=== PATIENT | male | born 1970 | race Caucasian/White ===

== ENCOUNTER 2024-12-23 16:54 | Emergency (ER) | payer OTHER, SELFPAY ==
--- OUTSIDE RECORDS SUMMARY | 2010-05-08 20:00 | XMS_ITS | Continuity of Care Document ---
Author Organization [facility] Address [address] [place] [address] Phone Care Team Providers Care Electrolog Operator Name Role Phone Unavailable Unavailable Unavailable Allergies, Adverse Reactions, Alerts Substance Reaction Status Criticality No Known Drug Allergies Active No I nformation Advance Directives Directive Yes / No Effective Date File Name No Information Encounters Encounter Description Practice Location Reason(s) For Visit Diagnoses Date Provider Providers Copied on Encounter [facility], [address] [place] [address], [address], tel:[phone] [facility] No Information 0 No Information [facility], [address] [place] [address], [address], [place] tel:[phone] [facility] Generalized seizuresHyperten natalya, Benign EssentialEsophag eal Reflux 0 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 . Family History Family Member Type Diagnosis Age At Onset NULL Problem (finding) Hypertension Payers Payer name Insurance type Covered alliance party ID Authoriza tion(s) No Information Social History Type Description Quantity Date Captured Comments Sex Male Smoking Status No Information Chief Complaint And Reason For Visit No Information Reason For Referral Reason For Referral No Information History Of Present Illness Encounter Date Complaint History Of Prese nt Illness No Information Functional Status Date Functional Assessmen t No Information Instructions Date Instruction Additional Infor mation No Information Assessments Type Assessment Date No Information Patient Care Teams Name Effective Dates (start - stop) Status Members No Information
--- OUTSIDE RECORDS SUMMARY | 2024-10-31 10:00 | XMS_ITS ---
Author Organization [facility] Address [address] [place] [address] Care Team Providers Care Gang Drill Press Operator Name Role Phone Angel Carrasquillo Primary Care Provider [phone] REASON FOR VISIT 1month f/u DM/A1C Social History Sex Assigned At : Social History Observation Description Sex Assigned At Male Encounters Encounter Location Date Provider Diagnosis [facility] [address] [place] [address] 10/31/2024 Angel Carrasquillo Plan Of Treatment Next Appt Details Provider Name:Angel Redd , 02/04/2025 10:00:00 AM, [address] [place], [address], Progress Notes * TEA KEN LDOB:1970 (54 yo M)Acc No.[id number]:10/31/2024 Progress Notes Patient: Perla TEA HUFFMAN Provider: Shital Carrasquillo :1970 A ge:53 Y S ex:Male Date:10/31/2024 Address:[address] [place], [place] [id number] Subjective: * Chief Complaints: * 1 . 1month f/u DM/A1C. * Medical History: Objective: * Vitals: Assessment: Plan: * Treatment: * Images: * Electronic signature of Danae Carrasquillo DO on 12/23/2024 at 06:06 PM EDT Sign off status: Pending * Provider: Shital Carrasquillo Date: 0 10/31/2024 Generated for Printi ng/Faxing/eTransmitting on: 0 12/23/2024 06:06 PM EDT
--- OUTSIDE RECORDS SUMMARY | 2024-11-06 04:45 | XMS_ITS ---
Author Organization [facility] Address [address] [place] [address] Care Team Providers Care Account Receivable Clerk Name Role Phone Angel Carrasquillo Primary Care Provider REASON FOR VISIT 1month f/u DM/A1C Social History Sex Assigned At : Social History Observation Description Sex Assigned At Male Encounters Encounter Location Date Provider Diagnosis [facility] [address] [place] [address] 11/06/2024 Angel Carrasquillo Plan Of Treatment Next Appt Details Provider Name:Angel Redd , 02/04/2025 10:00:00 AM, [address] [place], [address], Progress Notes * TEA KEN LDOB:1970 (54 yo M)Acc No.[id number]:11/06/2024 Progress Notes Patient: Perla TEA HUFFMAN Provider: Shital Carrasquillo :1970 A ge:53 Y S ex:Male Date:11/06/2024 Address:[address] [place], [place] [id number] Subjective: * Chief Complaints: * 1 . 1month f/u DM/A1C. * Medical History: Objective: * Vitals: Assessment: Plan: * Treatment: * Images: * Electronic signature of Danae Carrasquillo DO on 12/23/2024 at 06:05 PM EDT Sign off status: Pending * Provider: Shital Carrasquillo Date: 0 11/06/2024 Generated for Printi ng/Faxing/eTransmitting on: 0 12/23/2024 06:05 PM EDT
--- OUTSIDE RECORDS SUMMARY | 2024-12-01 13:45 | XMS_ITS | Encounter Summary ---
Author Organization [facility] Address [address] [place], [place] [id number] Care Team Providers Care Hotshot Superintendent Name Role Phone SherieparishCarmenTrinidad Fidel ASSISTANT MANAGER AIRSIDE OPERATIONS Unavailable [phone] Source Comments In the event this information is protected by the Federal Confidentiality of Alcohol and Drug AbusePatient Records regulations: The Federal rules restrict any use of the information to criminally investigate or prosecute any alcohol or drug abuse patient.[facility] Reason for Visit * Reason Comments PT Eval * Physical Therapy (Routine) - Authorized Specialty Diagnoses / Procedures Referred By Contac t Referred To Contact [facility] Diagnoses Lumbar radiculitis Procedures CONSULT TO PHYSICAL THERAPY PHYSICAL THERAPY EVALUATION HIGH COMPLEX 45 MINS THERAPEUTIC EXERCISES RE, EA 15 MIN. Florence Rivers, BARBARA.ASSISTANT MANAGER AIRSIDE OPERATIONS [address] [place] [address] Phone: tel: fax: [facility] [address] [place] [address] Referral ID Status Reason Start Date Expiration Date Visits Requested Visits Authorized [id number] Authorized Auto-Generat ed Referral 05/28/2024 05/27/2025 99 99 Encounter Details Date Type Department Care Team (Late st Contact Info) Description 12/01/2024 1:45 PM EDT OT/PT/Speech Visit [facility] [address] [id number] Ray Contreras, PT Lumbar radiculitis Social History Tobacco Use Types Packs/Day Years Used Date Smoking Tobacco: Never Smokeless Tobacco: Current Chew Alcohol Use Standard Drinks/Week Comments Not Currently 0 (1 standard drink = 0.6 oz pur e alcohol) occasional alcohol Area Deprivation Index Answer Date Derek rded National Score (1-100), lower number is lower ri sk 68 05/13/2024 State Score (1-10), lower number is lower risk 5 05/13/2024 Data from: https://www.neighborhoodatlas.medicine.[facility].edu/. Last address used for calculation [address] 05/13/2024 Sex and Gender Information Value Date Recorded Sex Assigned at Not on file Legal Sex Male 9:03 AM EST Gender Identity Not on file Sexual Orientation Not on file documented as of this encounter Progress Notes * Ray Contreras, PT - 12/01/2024 1:40 PM EDT Images from the original note were not included. Episode Visit Count: 1 Therapist That Will Accept/Oversee The Plan Of Care: Ortega Contreras Start of Care Date: 12/01/24 Onset Date: 09/01/24 Plan of Care Certification Date: 12/01/24 Next Certification Due Date: 01/30/25 Patient Identified by Name and Date of : Yes [facility] PHYSICAL THERAPY EVALUATION PLAN OF CARE: Assessment: Delta Weems presents with chief complaint of chronic low back pain that interferes with rising from a chair, standing, walking, walking in the community, stair negotiation, bending, lifting, physical activities . Pt with significant PMHx of low back pain and dysfunction. Pt presents with shuffled, antalgic gait pattern and forward-flexed posture. Difficulty with mobility. Unable to assess ROM or strength accurately. Discussed possible treatment options. Will progress as tolerated.Visit heavy on education/discussion on treatment approaches/options. Will progress as tolerated. Ptto f/u 1x/week moving forward. The patient presents with impairments in ADL's, flexibility, gait, independence in exercise, overall function, patient reported outcome measures, posture, range of motion, strength, stress management, symptom management, and tissue tenderness. PROMIS?? (Patient-Reported Outcomes Measurement Information System) scores were reviewed and identified as a rehabilitation concern. Prognosis for therapy is Fair due to: clinical presentation, multiple co- morbidities, chronic nature of impairments, limited tolerance to activity . The patient will benefit from skilled therapy services to meet the goals established for this plan of care as noted below. Classification Pain Mechanism Classification: Neuropathic Low Back Pain Classification: Symptom Modulation Goals for Episode of Care: established 12/01/24 Patient will decrease pain to <2/10 with functional activities to allow patient to improve standing tolerance for ADLs. Pt will restore pain-free lumbar ROM to WFL for mu-ism of prior level of function. Pt will stand / walk for 10 minutes without pain/symptoms to improve functional mobility for ADLs. Pt will improve gait mechanics and standing posture to be able to stand erect (without forward flexion of the trunk) in order to decrease stiffness/pain/dysfunction. Patient Goals: Be able to walk Time Frame for Goals and Treatment : 01/31/25 Planned Interventions, Frequency, and Duration: Current Frequency: 1x/week Duration: 8 weeks Total Number of Visits Planned: 8 Planned Treatment Interventions: Therapeutic exercise (80084), Neuromuscular re- education (94758), Manual therapy (37347), Self-halfway management (87408), Therapeutic activities (89333), Gait Training (65726), Aquatic PT (87431), Patient/Family/Caregiver Education, Body Mechanics Training, Functional training, General Conditioning PLAN FOR NEXT VISIT: light, slow movements, positioning; attempt repeated movements? anything tolerable; discuss possible aquatics trial? Patient demonstrates good understanding of plan of care and treatment. The above goals and plan of care were discussed and agreed upon by patient/family. SUBJECTIVE: Significant low back injury ~2-3 years ago. Back blew out . Has had pretty serious back pain ever since. 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 Doesn't move around a whole lot. Pain is mostly localized to the low back, but legs will spasm every now and then. Does get N&T in the R leg. Had MRI when original injury occurred. Revealed an annular tear and several significant disc bulges. Was given epidural injection recently. Only got 2-3 days of relief. Doctor was not happy. Was told he would have to undergo PT before he got any further imaging Patient Goals: Be able to walk Functional Limitations: rising from a chair, standing, walking, walking in the community, stair negotiation, bending, lifting, physical activities Prior Level of Function: Independent without limitations Relevant History Past Relevant Medical Conditions: Hypertension, Diabetes Employment: Medically Disabled Recreation / Current Exercise: none currently Intake Information: Prescription present Previous Treatment: Pain meds , Pain Management , Muscle relaxer , Injections , Heat Falls Interview: No positive findings with falls interview Spine History Symptoms Location at Onset: Back Symptoms Since Onset: Worsening Pain is Worse Always: Bending, Prolonged positions, Turning, Walking, Standing Pain is Better Always: No position Sleep Affected by Pain: Pain keeps from falling asleep, Pain awakens Pain: Pain Pain Level: 10 Pain Location: Low Back/Lumbar Spine - Right, Low Back/Lumbar Spine- Midline, Low Back/Lumbar Spine- Left Description: Sharp, Shooting, Spasm Frequency: Continuous Post Treatment Pain Post Treatment Pain Level: Worse Post Treatment Pain Location: Low Back/Lumbar Spine - Right, Low Back/Lumbar Spine- Midline, Low Back/Lumbar Spine - Left PROMIS Scales 08/22/2023 Higher is Better Phys Func - T Score 39 (moderate dysfunction) Phys Func - Percentile 14 08/22/2023 Lower is Better Pain Interference - T Score 63 (moderate) Pain Interference - Percentile 10 T-scores: mean of general population = 50. 5 points is clinically meaningfully difference Percentiles provide an indication of how the patient's score ranks in relation to the general population. Higher percentile rankings indicate better function/quality of life. 50th percentile is the average of the general population and indicates half of respondents had a worse score. OBJECTIVE MEASURES WITH LEVEL OF FUNCTION: Spine Observations R Lumbar Spine Palpation Tenderness: Paraspinals, Spinous process L Lumbar Spine Palpation Tenderness: Paraspinals, Spinous process Lumbar Spine AROM Lumbar Flexion: Moderate limitation, Increased pain Lumbar Extension: Major limitation, Increased pain Lumbar R Side-Bend: Moderate limitation Lumbar L Side-Bend: Moderate limitation Lumbar Spine AROM Comments: significant forward flexed posture; unable to move outside of this posture without significant pain LE AROM Tested?: No (unable 2/2 pain) LE PROM Tested?: No (unable 2/2 pain) LE Strength R LE Strength: unable to accurately assess 2/2 pain L LE Strength: unable to accurately assess 2/2 pain Functional Strength Functional Strength: Sit<>stand Sit/Stand: excess time required to perform; slow-moving 2/2 pain Special Tests - Hip and Spine Hip and Spine Special Tests: Slump Test Slump Test: Right Positive, Left Positive Gait Gait: Modified Independent Gait Distance (feet): 250 Gait Device: None Gait Observation: significant flexed-forward posture; unable to stand erect; slow moving, shuffled pattern w/inconsistent step length and betsy Education: Education Learning Preferences: Demonstration, Explanation, Performance, Printed Materials Barriers: None Learning/educational needs: Lifestyle changes, Health promotion, Safety, Home exercise program, Plan of Care, Changes in Plan of Care, Posture, Gait Training Education Provided: Yes, see treatment interventions for education provided Education Provided To: Patient, Caregiver Education Mode/Type: Demonstration, Explanation/Discussion, Literature/Printed Materials, Performance Response to Education/Teach Back: States/Identifies, Return Demonstration TREATMENT: PT Treatment Interventions: Self-Senior Living Management Evaluation Evaluation Self-Senior Living Management: 1: education - relevant anatomy; reviewed imaging; disc anatomy/dysfunction; purposes of; pathologyof 2: education - heavy/extensive discussion on activity modification (i.e. avoiding sedentary lifestyle); prognogis/treatment approach 3: discussion on POC, HEP, modalities at home to assist in pain alleviation 4: education - treatment options beyond what has been attempted; plans for therapy and beyond; discussed further medical intervention, etc Skilled Intervention: Skilled judgment in the selection of proper modification for activity of daily living/home management based on clinical presentation, deficits, and needs. Reviewed patient specific diagnosis in relation to activities of daily living/home management. Billing * Evaluation Moderate Complexity: 1 Unit Self-Care/Home Management Treatment Minutes: 38 Skilled Treatment Time Minutes (timed and untimed codes): 62 Total Session Time (minutes): 62 Session Start Time : 1340 Session Stop Time : 1442 Ray Contreras PT documented in this encounter Miscellaneous Notes * Addendum Note - Ray Contreras PT - 12/11/2024 4:02 PM EDTAddended by: RAY CONTRERAS on: 12/11/2024 04:02 PM Modules accepted: Orders documented in this encounter Plan of Treatment Upcoming Encounters Date Type Department Care Team (Late st Contact Info) Description 12/25/2024 1:45 PM EDT OT/PT/Speech Visit [facility] [id number] [place] [address] Ray Contreras PT Low Back Pain 01/01/2025 1:45 PM EDT OT/PT/Speech Visit [facility] [address] [place] [address] Ray Contreras PT Low Back Pain documented as of this encounter Visit Diagnoses Diagnosis Lumbar radiculitis Thoracic or lumbosacral neuritis or radiculitis, unspecified documented in this encounter Care Teams Hotshot Superintendent Relationship Specialty Start Date End Date Trinidad Gomes, ASSISTANT MANAGER AIRSIDE OPERATIONS [address] [place] [address] Referring Family Medicine 09/17/23 documented as of this encounter
--- OUTSIDE RECORDS SUMMARY | 2024-12-11 15:15 | XMS_ITS | Encounter Summary ---
Author Organization [facility] Address [address] [place], [place] [id number] Care Team Providers Care Toe Stripper Name Role Phone SherieparishCarmenTrinidad Fidel CORPORATE WEBMASTER Unavailable [phone] Source Comments In the event this information is protected by the Federal Confidentiality of Alcohol and Drug AbusePatient Records regulations: The Federal rules restrict any use of the information to criminally investigate or prosecute any alcohol or drug abuse patient.[facility] Reason for Visit * Reason Comments Physical Therapy * Physical Therapy (Routine) - Authorized Specialty Diagnoses / Procedures Referred By Contac t Referred To Contact [facility] Diagnoses Lumbar radiculitis Procedures CONSULT TO PHYSICAL THERAPY PHYSICAL THERAPY EVALUATION HIGH COMPLEX 45 MINS THERAPEUTIC EXERCISES RE, EA 15 MIN. Florence Rivers, BARBARA.CORPORATE WEBMASTER [address] [place] [address] Phone: tel: fax: [facility] [address] [place] [address] Referral ID Status Reason Start Date Expiration Date Visits Requested Visits Authorized [id number] Authorized Auto-Generat ed Referral 05/28/2024 05/27/2025 99 99 Encounter Details Date Type Department Care Team (Latest Contact Info) Description 12/11/2024 3:15 PM EDT OT/PT/Speech Visit [facility] [address] [phone] Ray Randolph, PT Lumbar radiculitis (Primary Dx) Social History Tobacco Use Types Packs/Day Years [...] is lower risk 5 05/13/2024 Data from: https://www.neighborhoodatlas.medicine.[facility].edu/. Last address used for calculation [address] 05/13/2024 Sex and Gender Information Value Date Recorded Sex Assigned at Not on file Legal Sex Male 9:03 AM EST Gender Identity Not on file Sexual Orientation Not on file documented as of this encounter Progress Notes * Ray Randolph, PT - 12/11/2024 4:25 PM EDT Episode Visit Count: 2 Therapist That Will Accept/Oversee The Plan Of Care: Ortega Randolph Start of Care Date: 12/01/24 Onset Date: 09/01/24 Plan of Care Certification Date: 12/01/24 Next Certification Due Date: 01/30/25 Patient Identified by Name and Date of : Yes [facility] PHYSICAL THERAPY TREATMENT NOTE ASSESSMENT: Delta Weems tolerated the session with increased symptoms. He demonstrated difficultywith most mobility activities. Tolerance was very low in terms of activities. Performed graded activities this date, starting at some light aerobic activity and light stretching to determine baseline. The patient will continue to benefit from ongoing skilled physical therapy in order to improve functional mobility for ADLs (I.e. walking, stairs, etc). PLAN FOR NEXT VISIT: light, slow movements, positioning; attempt repeated movements? anything tolerable; discuss possible aquatics trial? SUBJECTIVE: no changes in symptoms from last visit. Has good days and bad days. lost job but is looking for one a little closer to home. No longer living in a truck. Pain: Pain Pain Level: 10 Pain Location: Low Back/Lumbar Spine - Right, Low Back/Lumbar Spine- Midline, Low Back/Lumbar Spine- Left Description: Sharp, Shooting, Spasm Frequency: Continuous Post Treatment Pain Post Treatment Pain Level: Worse OBJECTIVE MEASURES WITH LEVEL OF FUNCTION: Lumbar Spine AROM Lumbar Flexion: Moderate limitation, Increased pain Functional Strength Functional Strength: Supine<>sit Supine<>sit: significant difficulty; slow-moving Gait Gait Observation: significant flexed-forward posture; unable to stand erect; slow moving, shuffled pattern w/inconsistent step length and betsy; intermittent spasms causes weakness/instability inlegs TREATMENT: Therapeutic Exercise: 1: NuStep; light aerobic warm up; intermittent resting; x15 min lvl 1.0 for graded exercise 2: tajik ball roll out; 1/2 ROM; x15 - very slow-moving; very difficult to tolerate 3: clinic ambulation w/CGA/guarding for monitoring of unstable BLE Skilled Intervention: Reviewed and educated patient on additions/changes for home exercise program as above (*). Skilled judgment was used in selection of appropriate interventions. Correct performance of therapeutic exercises was facilitated with verbal and visual cuing. Billing Therapeutic Exercise Treatment Minutes: 45 Skilled Treatment Time Minutes (timed and untimed codes): 45 Total Session Time (minutes): 45 Session Start Time : 1515 Session Stop Time : 1600 Ray Randolph PT documented in this encounter Plan of Treatment Upcoming Encounters Date Type Department Care Team (Late st Contact Info) Description 12/25/2024 1:45 PM EDT OT/PT/Speech Visit [facility] [address] [place] [address] Ray Randolph PT Low Back Pain 01/01/2025 1:45 PM EDT OT/PT/Speech Visit [facility] [address] [place] [address] Ray Randolph PT Low Back Pain documented as of this encounter Visit Diagnoses Diagnosis Lumbar radiculitis- Primary Thoracic or lumbosacral neuritis or radiculitis, unspecified documented in this encounter Care Teams Toe Stripper Relationship Specialty Start Date End Date Trinidad Gomes, CORPORATE WEBMASTER [address] [facility] [address] [place] [address] Referring Family Medicine 09/17/23 documented as of this encounter
[2024-12-23] VITALS (25 sets, daily range): BP systolic 123–154; BP diastolic 84–104; PULSE 53–89; TEMP 36.7; O2SAT 76–100; BMI 31.2
--- OUTSIDE RECORDS SUMMARY | 2024-12-23 14:30 | XMS_ITS | Encounter Summary ---
Author Organization [facility] Address [address] [place], [place] [id number] Care Team Providers Care Belt And Link Assembly Supervisor Name Role Phone SherieparishCarmenTrinidad Fidel [employer] Unavailable [phone] Source Comments In the event this information is protected by the Federal Confidentiality of Alcohol and Drug AbusePatient Records regulations: The Federal rules restrict any use of the information to criminally investigate or prosecute any alcohol or drug abuse patient.[facility] Reason for Visit * Reason Comments Physical Therapy * Physical Therapy (Routine) - Authorized Specialty Diagnoses / Procedures Referred By Contac t Referred To Contact [facility] Diagnoses Lumbar radiculitis Procedures CONSULT TO PHYSICAL THERAPY PHYSICAL THERAPY EVALUATION HIGH COMPLEX 45 MINS THERAPEUTIC EXERCISES RE, EA 15 MIN. Florence Rivers, BARBARA.[employer] [address] [place] [address] Phone: tel: fax: [facility] [address] [place] [phone] Referral ID Status Reason Start Date Expiration Date Visits Requested Visits Authorized [id number] Authorized Auto-Generat ed Referral 05/28/2024 05/27/2025 99 99 Encounter Details Date Type Department Care Team (Latest Contact Info) Description 12/23/2024 2:30 PM EDT OT/PT/Speech Visit [facility] [address] [place] [phone] Zay Carlson, PT, DPT Lumbar radiculitis (Primary Dx) Social History Tobacco [...] is lower risk 5 05/13/2024 Data from: https://www.neighborhoodatlas.medicine.[facility].edu/. Last address used for calculation [address] 05/13/2024 Sex and Gender Information Value Date Recorded Sex Assigned at Not on file Legal Sex Male 9:03 AM EST Gender Identity Not on file Sexual Orientation Not on file documented as of this encounter Last Filed Vital Signs Vital Sign Reading Time Taken Comments Blood Pressure 161/106 12/23/2024 2:00 PM EDT ini tially 183/120, lowered with rest and deep breathing Pulse 64 12/23/2024 2:00 PM EDT Temperature - - Respiratory Rate - - Oxygen Saturation - - Inhaled Oxygen Concentration - - Weight - - Height - - Body Mass Index - - documented in this encounter Progress Notes * Zay Carlson, PT, DPT - 12/23/2024 2:39 PM EDT Episode Visit Count: 3 Therapist That Will Accept/Oversee The Plan Of Care: Ortega Randolph Start of Care Date: 12/01/24 Onset Date: 09/01/24 Plan of Care Certification Date: 12/01/24 Next Certification Due Date: 01/30/25 Patient Identified by Name and Date of : Yes [facility] PHYSICAL THERAPY TREATMENT NOTE ASSESSMENT: Delta Weems presented with reports of newer onset chest pain, occasional bouts of numbness throughout his body, and demonstrated significant hypertension upon measuring blood pressure. Patient denied any dizziness, nausea, shortness of breath, or headaches and appeared alert and oriented to person, place, and time. Upon resting for a few minutes, patient's blood pressure stabilized at 160/100. Due to new onset symptoms and hypertension, patient was encouraged to be seen in the emergency department to rule out any sinister causes, patient in agreement and left session with julio co have his partner take him to the ED. PLAN FOR NEXT VISIT: light, slow movements, positioning; attempt repeated movements? anything tolerable; discuss possible aquatics trial? SUBJECTIVE: No improvement in symptoms since last visit. Reports recent onset of occasional chest pains that feel like I got hit in the chest with a baseball bat . Also reports over the last couple weeks he has started noticing onset of full body numbness from his chest down that causes loss of balance and stability while walking. Denies any falls but reports he has had to catch myself . States he was considering going to the ER because his chest pain has not improved over the last week. Pain: Pain Pain Level: 10 Pain Location: Low Back/Lumbar Spine - Right, Low Back/Lumbar Spine- Midline, Low Back/Lumbar Spine- Left OBJECTIVE MEASURES WITH LEVEL OF FUNCTION: Vitals BP: 161/106 (initially 183/120, lowered with rest and deep breathing) Pulse: 64 TREATMENT: Self-Fdc Management: 1: medical management: assessed vitals and patient status, discussed inability to exercise due to blood pressure, need for further testing to rule out sinister causes due to presentation Skilled Intervention: Monitored vitals and discussed findings, importance of going to the emergencydepartment to further assess new symptoms and ensure no sinister causes. Billing Self-Care/Home Management Treatment Minutes: 20 Skilled Treatment Time Minutes (timed and untimed codes): 20 Total Session Time (minutes): 30 Session Start Time : 1440 Session Stop Time : 1510 Zay Carlson PT, DPT documented in this encounter Plan of Treatment Upcoming Encounters Date Type Department Care Team (Late st Contact Info) Description 12/25/2024 1:45 PM EDT OT/PT/Speech Visit [facility] [address] [place] [id number] Ray Randolph PT Low Back Pain 01/01/2025 1:45 PM EDT OT/PT/Speech Visit [facility] [address] [place], [place] [phone] Ray Randolph, PT Low Back Pain documented as of this encounter Visit Diagnoses Diagnosis Lumbar radiculitis- Primary Thoracic or lumbosacral neuritis or radiculitis, unspecified documented in this encounter Care Teams Belt And Link Assembly Supervisor Relationship Specialty Start Date End Date Trinidad Gomes CNP [address] [facility] [address] [place] [address] Referring Family Medicine 09/17/23 documented as of this encounter
--- NOTE | 2024-12-23 17:22 | ECG_ITS ---
[facility] Test Date: 2024-12-23 Pat Name: TEA KEN Department: Room: - Gender: Male Family Day Care Provider: : 1970 Requested By: 0923 Order Number: [id number] Reading MD: DAVON MATTHEWS M.D. Measurements Intervals [place] Rate: 61 P: 46 PA: 234 QRS: 32 QRSD: 96 T: 28 QT: 428 QTc: 430 Interpretive Statements 1100 Sinus rhythm 2231 First degree AV block 9150 abnormal ECG No previous ECG available for comparison Electronically Signed On 12-23-2024 20:49:37 EDT by DAVON MATTHEWS M.D.
--- NOTE | 2024-12-23 17:22 | XR_ITS ---
The [address] [address] Patient Name: TEA KEN MRN: [id number] date: 1970 Sex: M Assigned Patient Location: ER Current Patient Location: ER Accession/Order Number: [id number] Exam Date: 12/23/2024 17:58 Report Date: 12/23/2024 17:58 At the request of: NAHEED WILLIS Procedure: XR chest 2V PA AND LATERAL CHEST: CLINICAL HISTORY: chest pain COMPARISON: None FINDINGS: Unremarkable cardiomediastinal. Lungs clear. Incidental right lung base calcified granuloma. Azygos fissure. No effusion or pneumothorax. XR/XR chest 2V IMPRESSION: NO ACUTE CARDIOPULMONARY ABNORMALITY. Impression dictated by: Evans Santos M.D. 12/23/2024 5:58 PM Dictation Location: [place] [address] Electronically authenticated by: [id number] Y Date: 12/23/2024 17:58
--- NOTE | 2024-12-23 17:22 | ED.GENADUL1 ---
HPI HPI - General Adult General Chief complaint: Chest Pain Stated complaint: CHEST PAINS Time Seen by Provider: 12/23/24 17:18 Source: patient Mode of arrival: walk-in Limitations: no limitations History of Present Illness HPI narrative: 54-year-old male presents here with a chief complaint of chest pain. Patient states he had pain for the past 2 weeks. Patient does have a history of pulmonary embolisms and takes Lovenox subcu daily. Patient states she has had a history of pulmonary embolism for several years. He is not diaphoretic or having any pain that radiates anywhere. He states he was at his physical therapy appointment today in [place] and they would not finish physical therapy for him and advised him to go to the [facility] ER. Patient drove back to our facility here in [place] for his chest pain workup. Upon arrival he did not appear diaphoretic or short of breath. He denies any history of shortness of breath. He states he has pain to palpation of his chest. He states that his cartilage in his sternum had torn the previously. Patient states after asking that it was costochondritis. Patient does have some pain to palpation of the chest wall today. I have low suspicion of any acute AZ at this time he is very comfortable answering questions. He is not hypoxic diaphoretic or tachycardic. Related Data Home Medications ?Medication ?Instructions ?Recorded ?Confirmed empagliflozin 10 mg tablet 10 mg PO DAILY 12/23/24 12/23/24 (Jardiance) enoxaparin 80 mg/0.8 mL 80 mg subcut DAILY 12/23/24 12/23/24 subcutaneous syringe (Lovenox) insulin glargine 100 unit/mL (3 50 unit subcut QPM 12/23/24 12/23/24 mL) subcutaneous pen (Lantus Solostar U-100 Insulin) valsartan 320 1 tab PO DAILY 12/23/24 12/23/24 mg-hydrochlorothiazide 25 mg tablet (Diovan HCT) Previous Rx's ?Medication ?Instructions ?Recorded potassium chloride 20 mEq oral 20 meq PO DAILY 5 days #5 ea 12/23/24 packet Allergies Allergy/AdvReac Type Severity Reaction Status Date / Time No Known Drug Allergies Allergy Verified 12/23/24 17:04 Opioid HPI Opioid Management Most Recent Opioid Data: Last Pain Scale 6 Today, 19:25 Review of Systems ROS Status of ROS 10 or more systems reviewed and unremarkable except as noted in history and below PFSH PFSH Social History Little interest or pleasure in doing things: not at all Feeling down, depressed, or hopeless: not at all Exam Narrative Exam Narrative: All Systems are negative except as noted/marked.All systems reviewed and otherwise negative Nurses note and vital signs reviewed and patient is not hypoxic. General: The patient appears well and in no apparent distress. Patient is resting comfortably on cart. Skin: Warm, dry, no pallor noted. There is no rash noted. Head: Normocephalic, atraumatic Eye: Normal conjunctiva, no drainage, EOMI. PERRL Ears, Nose, Mouth, and Throat: oral mucosa is moist. Nares patent. Mouth without vesicles. Ear canals patent. Tm's without Erythema Cardiovascular: Regular Rate and Rhythm chest wall: pain to palpation Respiratory: Patient is in no distress, no accessory muscle use, lungs are clear to auscultation, no wheezing, rales or rhonchi Back: non-tender, no CVA tenderness bilaterally to percussion. GI: Normal bowel sounds, no tenderness to palpation, no masses appreciated. No rebound, guarding, or rigidity noted. Musculoskeletal: The patient has no evidence of calf tenderness, no pitting edema, symmetrical pulses noted bilaterally Neurological: A&O x4, normal speech Psychiatric: Cooperative Constitutional Vital Signs, click to edit/add: Last Vital Signs Temp 98.1 F 12/23/24 17:04 Pulse 59 L 12/23/24 18:30 Resp 16 12/23/24 18:30 BP 130/84 12/23/24 18:30 Pulse Ox 98 12/23/24 18:30 O2 Del Method Room Air 12/23/24 17:04 Course Vital Signs Vital signs: Vital Signs Blood Pressure 152/103 H 12/23/24 17:00 Temperature 98.1 F 12/23/24 17:04 Pulse Rate 59 L 12/23/24 18:30 Respiratory Rate 16 12/23/24 18:30 Blood Pressure 130/84 12/23/24 18:30 Pulse Oximetry 98 12/23/24 18:30 Oxygen Delivery Method Room Air 12/23/24 17:04 Medical Decision Making [facility] Narrative Medical decision making narrative: 54-year-old male presents here with a chief complaint of chest pain. Patient states he had pain for the past 2 weeks. Patient does have a history of pulmonary embolisms and takes Lovenox subcu daily. Patient states she has had a history of pulmonary embolism for several years. He is not diaphoretic or having any pain that radiates anywhere. He states he was at his physical therapy appointment today in [place] and they would not finish physical therapy for him and advised him to go to the [facility] ER. Patient drove back to our facility here in [place] for his chest pain workup. Upon arrival he did not appear diaphoretic or short of breath. He denies any history of shortness of breath. He states he has pain to palpation of his chest. He states that his cartilage in his sternum had torn the previously. Patient states after asking that it was costochondritis. Patient does have some pain to palpation of the chest wall today. I have low suspicion of any acute AZ at this time he is very comfortable answering questions. He is not hypoxic diaphoretic or tachycardic. Patient presented here to the emergency room chief complaint of chest pain. Patient's pain is reproducible with palpation of the chest wall. Believe his pain is more due to costochondritis. He did have a complete cardiac workup including 2 troponins which were normal. Patient had a low sodium was medicated here with some IV fluids. He was also given a dose of 40 mill equivalents of potassium for his low potassium of 3.2. CTA of the chest was performed as patient does have a history of pulmonary embolism. 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 Patient's workup is completely normal here today. Patient was medicated here with morphine. He did also have received nitro which did not help alleviate any of his symptoms or pain. Patient encouraged to follow-up with his primary care physician I believe pain today is due to chest wall pain, patient be discharged home with exacerbation or chronic pulmonary embolism, chest wall pain and hypokalemia. Patient verbalized understanding agrees with plan of care at discharge. Differential Diagnosis Differential Diagnosis: chest pain, exacerbation of pe, mi, costochondritis Medical Records Medical records reviewed: Yes I reviewed the patient's medical records Lab Data Lab results reviewed: Yes I reviewed the patient's lab results Labs: Lab Results 07/29/25 07/29/25 07/29/25 Range/Units 17:15 17:37 19:07 WBC 9.5 (4.0-11.0) 10^3/uL RBC 5.75 (4.70-6.10) 10^6/uL Hgb 12.7 L (14.0-18.0) g/dL Hct 39.8 L (42.0-54.0) % MCV 69.2 L (80.0-94.0) fL MCH 22.1 L (25.9-34.0) pg MCHC 31.9 (29.9-35.2) g/dL RDW 18.2 H (11.0-15.0) % Plt Count 353 (150-450) 10^3/uL MPV 9.2 L (9.5-13.5) fL Neut % (Auto) 64.7 (43.0-75.0) % Lymph % (Auto) 21.0 (20.5-60.0) % [place] % (Auto) 6.6 (1.7-12.0) % Eos % (Auto) 6.6 (0.9-7.0) % Baso % (Auto) 0.7 (0.2-2.0) % Neut # (Auto) 6.1 (1.4-6.5) 10^3/uL Lymph # (Auto) 2.0 (1.2-3.8) 10^3/uL [place] # (Auto) 0.6 (0.3-0.8) 10^3/uL Eos # (Auto) 0.6 (0.0-0.7) 10^3/uL Baso # (Auto) 0.1 (0.0-0.1) 10^3/uL Abs Immat Gran (auto) 0.04 H (0.00-0.03) 10^3/uL Imm/Tot Granulo (auto) 0.4 (0.0-0.5) % PT 11.4 (9.0-11.6) sec INR 1.08 APTT 28.2 (22.3-36.2) sec Sodium 133 L (136-145) mmol/L Potassium 3.3 L (3.5-5.1) mmol/L Chloride 96 L (98-107) mmol/L Carbon Dioxide 28.6 (21.0-32.0) mmol/L Anion Gap 11.7 BUN 15.0 (7.0-18.0) mg/dL Creatinine 1.04 (0.70-1.30) mg/dL Est GFR ( Amer) >60 (>=60 mL/min/1.73m^2) Est GFR (Non-Af Amer) >60 (>=60 mL/min/1.73m^2) BUN/Creatinine Ratio 14.4 Glucose 218 H (74-106) mg/dL Calcium 9.1 (8.5-10.1) mg/dL Total Bilirubin 0.5 (0.2-1.0) mg/dL AST 13 L (15-37) U/L ALT 27 (16-63) U/L Alkaline Phosphatase 101 (46-116) U/L Troponin I High Sens 5.6 5.7 (4.0-76.1) pg/mL Total Protein 8.1 (6.4-8.2) g/dL Albumin 3.6 (3.4-5.0) g/dL Globulin 4.5 g/dL Albumin/Globulin Ratio 0.8 Imaging Data Chest x-ray: Radiologist's impression: ITS Impressions Chest X-Ray 12/23/24 17:22 IMPRESSION: NO ACUTE CARDIOPULMONARY ABNORMALITY. Impression dictated by: Evans Santos M.D. 12/23/2024 5:58 PM Dictation Location: [email or web address] Electronically authenticated by: [id number] Y Date: 12/23/2024 17:58 Chest CTA 12/23/24 18:33 IMPRESSION: Bilateral pulmonary emboli extending to upper and lower lobar branches Critical findings were discussed with the ER physician at approximately 7:22 PM on 12/23/2024 Impression dictated by: Evans Santos M.D. 12/23/2024 7:25 PM Dictation Location: [email or web address] Electronically authenticated by: [id number] Y Date: 12/23/2024 19:25 Discharge Plan Discharge Chief Complaint: Chest Pain Clinical Impression: Chest pain, Chronic pulmonary embolism Patient Disposition: Home, Self-Care Time of Disposition Decision: 19:50 Condition: Good Prescriptions / Home Meds: New potassium chloride 20 mEq packet 20 meq PO DAILY 5 Days Qty: 5 0RF No Action Jardiance 10 mg tablet 10 mg PO DAILY valsartan-hydrochlorothiazide [Diovan HCT] 320-25 mg tablet 1 tab PO DAILY enoxaparin [Lovenox] 80 mg/0.8 mL syringe 80 mg subcut DAILY insulin glargine [Lantus Solostar U-100 Insulin] 100 unit/mL (3 mL) insulin pen 50 unit subcut QPM Print Language: Syriac Instructions: Chest Pain (ED), Hypokalemia (ED), Thoracic Pain (ED) Referrals: ALVIN ROBLES [Primary Care Provider, Family Practice] - 1 week
[2024-12-23] MEDS: NITROGLYCERIN 0.4 MG BOTTLE PO (17:33)
[2024-12-23 17:44] LABS: Hematocrit 39.8 % (42.0-54.0); Hemoglobin 12.7 g/dL (14.0-18.0); Mean Corpuscular HGB Conc 31.9 g/dL (29.9-35.2); Mean Corpuscular Hemoglobin 22.1 pg (25.9-34.0); Mean Corpuscular Volume 69.2 fL (80.0-94.0); Red Blood Count 5.75 10^6/uL (4.70-6.10); White Blood Count 9.5 10^3/uL (4.0-11.0)
[2024-12-23 17:45] LABS: Immature Granulocytes Abs Auto 0.04 10^3/uL (0.00-0.03); Immature Granulocytes Pct Auto 0.4 % (0.0-0.5); Lymphocytes Absolute Auto 2.0 10^3/uL (1.2-3.8); Platelet Count 353 10^3/uL (150-450)
[2024-12-23] MEDS: ACETAMINOPHEN 325 MG TABLET 650 MG PO (17:52)
[2024-12-23 18:04] LABS: Alanine Aminotransferase 27 U/L (16-63); Albumin Globulin Ratio 0.8; Albumin Level 3.6 g/dL (3.4-5.0); Alkaline Phosphatase 101 U/L (46-116); Anion Gap 11.7; Aspartate Amino Transferase 13 U/L (15-37); Blood Urea Nitrogen 15.0 mg/dL (7.0-18.0); Calcium 9.1 mg/dL (8.5-10.1); Carbon Dioxide 28.6 mmol/L (21.0-32.0); Chloride 96 mmol/L (98-107); Estimated GFR (African America >60 (>=60 mL/min/1.73m^2); Estimated GFR (Non-African Ame >60 (>=60 mL/min/1.73m^2); Globulin 4.5 g/dL; Glucose 218 mg/dL (74-106); Potassium 3.3 mmol/L (3.5-5.1); Sodium 133 mmol/L (136-145); Total Protein 8.1 g/dL (6.4-8.2)
--- OUTSIDE RECORDS SUMMARY | 2024-12-23 18:04 | XMS_ITS | Encounter Summary ---
Author Organization [facility] Address [address] [place] [address] Phone Care Team Providers Care Medical Office Secretary Name Role Phone Unavailable Primary Care Provider Unavailabl e Encounter Details Date Type Department Care Team (Late st Contact Info) Description 01/09/2023 Scanned Document [facility] [address] [place] [address] Conversion, Onbase Social History Tobacco Use Types Packs/Day Years Used Date Smoking Tobacco: Never Assessed Sex and Gender Information Value Date Recorded Sex Assigned at Not on file Legal Sex Male 6:17 PM EST Gender Identity Not on file Sexual Orientation Not on file documented as of this encounter Plan of Treatment Not on file documented as of this encounter Procedures Procedure Name Priority Date/Time Associated Diagnosis Comments CARDIAC STRESS TEST 01/09/2023 documented in this encounter Results * CARDIAC STRESS TEST (01/09/2023) Narrative 01/09/2023 Ordered by an unspecified provider. us Onbase Conversion CV STRESS PROCEDURES Final Res ult documented in this encounter Visit Diagnoses Not on filedocumented in this encounter
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
--- OUTSIDE RECORDS SUMMARY | 2024-12-23 18:04 | XMS_ITS | Encounter Summary ---
Author Organization [facility] Address [address] [place] [address] Care Team Providers Care Urban Design Consultant Name Role Phone Trinidad Gomes COAL MINER Unavailable [phone] Source Comments In the event this information is protected by the Federal Confidentiality of Alcohol and Drug AbusePatient Records regulations: The Federal rules restrict any use of the information to criminally investigate or prosecute any alcohol or drug abuse patient.[facility] Reason for Visit * Reason Comments Radiology XR Encounter Details Date Type Department Care Team (Late st Contact Info) Description 10/12/2023 Radiology Radiology [address] [place] [address] Josue Smith RT(R) Radiology XR Social History Tobacco Use Types Packs/Day Years Used Date Smoking Tobacco: Never Assessed Area Deprivation Index Answer Date Derek rded National Score (1-100), lowe r number is lower risk 68 10/12/2023 State Score (1-10), lower number is lower risk 5 10/12/2023 Data from: https://www.neighborhoodatlas.medicine.[facility].ed u/. Last address used for calculation [address] 10/12/2023 Sex and Gender Information Value Date Recorded Sex Assigned at Not on file Legal Sex Male 9:03 AM EST Gender Identity Not on file Sexual Orientation Not on file documented as of this encounter Progress Notes * Josue Smith RT(R) - 10/12/2023 3:14 PM EDT Radiology Service Progress Note PATIENT NAME: Delta Weems DATE OF SERVICE: October 12, 2023 TIME: 3:14 PM PATIENT IDENTITY VERIFICATION COMPLETED USING TWO (2) IDENTIFIERS: Name and Date of confirmedby patient verbally. FALL SCREENING: Has the patient had 2 falls in the last year or 1 fall with injury or currently using an Ambulatory Assistive Device (Walker, Cane, Wheelchair, Crutches, etc.)? No PATIENT GENDER DATA: Male PATIENT RELEVANT IMPLANT DATA REVIEWED: Not Applicable PATIENT PRESENTS WITH AN IMPLANTABLE OR ATTACHED BELT PRESS OPERATOR: No RADIOLOGY DEPARTMENT: General X-ray: Exam(s) Completed: Upper Extremity X- Ray(s): Shoulder, AP / TRUE AP / AXILLARY / SUPRA OUTLET right PERIPHERAL IV DATA: Not applicable SIGNED BY: RT Anastasiia(Vandana) October 12, 2023 3:14 PM documented in this encounter Plan of Treatment Upcoming Encounters Date Type Department Care Team (Late st Contact Info) Description 12/25/2024 1:45 PM EDT OT/PT/Speech Visit [facility] Physical Therapy [address] [place], [place] [phone] Ray Randolph, PT Low Back Pain 01/01/2025 1:45 PM EDT OT/PT/Speech Visit [facility] Physical Therapy [address] [place] [address] Agustín Ray, PT Low Back Pain documented as of this encounter Visit Diagnoses Not on filedocumented in this encounter Care Teams Urban Design Consultant Relationship Specialty Start Date End Date Trinidad Gomes CNP [address] [facility] [address] [place] [address] Referring Family Medicine 09/17/23 documented as of this encounter
--- OUTSIDE RECORDS SUMMARY | 2024-12-23 18:04 | XMS_ITS | Clinical Summary ---
Author Organization [facility] Address [address] [place] [address] Phone Care Team Providers Care Publication Editor Name Role Phone Unavailable Primary Care Provider Unavailabl e Social History Tobacco Use Types Packs/Day Years Used Date Smoking Tobacco: Never Assessed Sex and Gender Information Value Date Recorded Sex Assigned at Not on file Legal Sex Male 6:17 PM EST Gender Identity Not on file Sexual Orientation Not on file Plan of Treatment Health Maintenance Due Date Last Done Comments CT Colonography 1968 Colonoscopy 1968 Colorectal Cancer Screening 1968 FIT-DNA (Cologuard) 1968 FIT 1968 HIV Screening 1968 Lipid Panel 1968 Sigmoidoscopy 1968 Yearly Adult Physical 1968 MMR Vaccines (1 of 1 - Stand hemant series) 1969 Hepatitis C Screening 1986 Hepatitis B Vaccines (1 of 3 - 19+ 3-dose series) 12/06/1987 DTaP/Tdap/Td Vaccines (1 - Tdap) 1990 PSA Prostate Cancer Screening 2018 Pneumococcal Vaccine (1 of 1 - PCV) 2018 Zoster Vaccines (1 of 2) 2018 COVID-19 Vaccine (1 - 2023-2 5 season) 2024 Influenza Vaccine (#1) 2025 HIB Vaccines Aged Out No longer eligi ble based on patient's age to complete this topic HPV Vaccines Aged Out No longer eligi ble based on patient's age to complete this topic Hepatitis A Vaccines Aged Out No long er eligible based on patient's age to complete this topic IPV Vaccines Aged Out No longer eligi ble based on patient's age to complete this topic Meningococcal Vaccine Aged Out No landry dwayne eligible based on patient's age to complete this topic Rotavirus Vaccines Aged Out No longer eligible based on patient's age to complete this topic
--- OUTSIDE RECORDS SUMMARY | 2024-12-23 18:04 | XMS_ITS | Encounter Summary ---
Author Organization [facility] Address [address] [place] [address] Phone Care Team Providers Care Corporate Compliance Manager Name Role Phone Unavailable Primary Care Provider Unavailabl e Encounter Details Date Type Department Care Team (Late st Contact Info) Description 03/01/2023 Scanned Document [facility] [address] [place] [address] Scanning, Generic Provider Social History Tobacco Use Types Packs/Day Years [...] Date/Time Associated Diagnosis Comments CARDIAC STRESS TEST 03/01/2023 CARDIAC STRESS TEST 03/01/2023 documented in this encounter Results * CARDIAC STRESS TEST (03/01/2023) Narrative 03/01/2023 Ordered by an unspecified provider. us Generic Provider Scanning CV STRESS PROCEDURES F inal Result * CARDIAC STRESS TEST (03/01/2023) Narrative 03/01/2023 Ordered by an unspecified provider. us Generic Provider Scanning CV STRESS PROCEDURES F inal Result documented in this encounter Visit Diagnoses Not on filedocumented in this encounter
[2024-12-23 18:05] LABS: INR 1.08; Prothrombin Time 11.4 sec (9.0-11.6)
--- OUTSIDE RECORDS SUMMARY | 2024-12-23 18:05 | XMS_ITS | Encounter Summary ---
Author Organization [facility] Address [address] [place] [address] Care Team Providers Care Building Drafting Officer Name Role Phone Trinidad Gomes AIRCRAFT FUELER Unavailable [phone] Source Comments In the event this information is protected by the Federal Confidentiality of Alcohol and Drug AbusePatient Records regulations: The Federal rules restrict any use of the information to criminally investigate or prosecute any alcohol or drug abuse patient.[facility] Encounter Details Date Type Department Care Team (Latest Contact Info) Description 12/11/2024 Travel Social History Tobacco Use Types Packs/Day Years [...] is lower risk 5 05/13/2024 Data from: https://www.neighborhoodatlas.medicine.[facility].edu/. Last address used for calculation [address] 05/13/2024 Sex and Gender Information Value Date Recorded Sex Assigned at Not on file Legal Sex Male 9:03 AM EST Gender Identity Not on file Sexual Orientation Not on file documented as of this encounter Plan of Treatment Upcoming Encounters Date Type Department Care Team (Late st Contact Info) Description 12/25/2024 1:45 PM EDT OT/PT/Speech Visit [facility] [address] [place] [address] Ray Randolph PT Low Back Pain 01/01/2025 1:45 PM EDT OT/PT/Speech Visit [facility] [address] [place] [address] Ray Randolph PT Low Back Pain documented as of this encounter Visit Diagnoses Not on filedocumented in this encounter Care Teams Building Drafting Officer Relationship Specialty Start Date End Date Trinidad Gomes, AIRCRAFT FUELER [address] [place] [address] Referring Family Medicine 09/17/23 documented as of this encounter
--- OUTSIDE RECORDS SUMMARY | 2024-12-23 18:05 | XMS_ITS | Encounter Summary ---
Author Organization [facility] Address [address] [place] [address] Care Team Providers Care Quilt Maker Name Role Phone Trinidad Gomes PARTS DATA WRITER Unavailable Source Comments In the event this information is protected by the Federal Confidentiality of Alcohol and Drug AbusePatient Records regulations: The Federal rules restrict any use of the information to criminally investigate or prosecute any alcohol or drug abuse patient.[facility] Encounter Details Date Type Department Care Team (Late st Contact Info) Description 12/18/2024 Get Medical Advice [facility] [address] [place], [place] [phone] Ray Randolph PT Physical therapy Social History Tobacco Use Types Packs/Day Years [...] is lower risk 5 05/13/2024 Data from: https://www.neighborhoodatlas.medicine.[facility].edu/. Last address used for calculation [address] [facility] 05/13/2024 Sex and Gender Information Value Date Recorded Sex Assigned at Not on file Legal Sex Male 9:03 AM EST Gender Identity Not on file Sexual Orientation Not on file documented as of this encounter Plan of Treatment Upcoming Encounters Date Type Department Care Team (Late st Contact Info) Description 12/25/2024 1:45 PM EDT OT/PT/Speech Visit [facility] [id number] [place] [address] Ray Randolph PT Low Back Pain 01/01/2025 1:45 PM EDT OT/PT/Speech Visit [facility] [phone] [place] [address] Ray Randolph PT Low Back Pain documented as of this encounter Visit Diagnoses Not on filedocumented in this encounter Care Teams Quilt Maker Relationship Specialty Start Date End Date Trinidad Gomes, PARTS DATA WRITER [address] [facility] [address] [place] [address] Referring Family Medicine 09/17/23 documented as of this encounter
--- OUTSIDE RECORDS SUMMARY | 2024-12-23 18:05 | XMS_ITS | Encounter Summary ---
Author Organization [employer] Address [id number] [address] [place] [address] Care Team Providers Care Assistant Produce Manager Name Role Phone Ai Craig FLOOR FRAMER-ASSISTANT SALES CENTER MANAGER Primary Care Provider Reason for Referral * Diagnostic Imaging (Routine) - Closed Specialty Diagnoses / Procedures Referred By Contac t Referred To Contact Radiology Diagnoses Pain Procedures CT brain without contrast stroke alert [facility] [employer] [facility] [place] [address] Phone: tel: fax: Referral ID Status Reason Start Date Expiration Date Visits Re quested Visits Authorized [id number] Closed 06/12/2023 06/11/2024 1 1 Encounter Details Date Type Department Care Team (Late Contact Info) Description 06/12/2023 Orders Only [facility] [employer] [facility] [place] [address] External, Scanning Provider Pain (Primary Dx) Social History Tobacco Use Types Packs/Day Years Used Date Smoking Tobacco: Former Cigarettes Smokeless Tobacco: Current Snuff Alcohol Use Standard Drinks/Week Comments Yes 0 (1 standard drink = 0.6 oz pur e alcohol) rarely Childcare Answer Date Recorded Childcare Unknown 11/04/2018 Employment Answer Date Recorded Employment Unknown 11/04/2018 Hunger Screening Answer Date Recorded Within the past 12 months we worried whether our food would run out before we got money to buy more. Never True 06/05/2023 Within the past 12 months th e food we bought just didn't last and we didn't have money to get more. Never True 06/05/2023 Sex and Gender Information Value Date Recorded Sex Assigned at Not on file Legal Sex Male 12:08 PM EDT Gender Identity Not on file Sexual Orientation Not on file documented as of this encounter Plan of Treatment Not on file documented as of this encounter Results * CT brain without contrast stroke alert (05/25/2023 6:40 PM EST) us Scanning Provider External IMG CT ORDERABLES Fin al Result * X-ray spine lumbar minimum 4 views (04/23/2023 7:50 AM EST) us Scanning Provider External IMG DIAGNOSTIC IMAGIN G ORDERABLES Final Result documented in this encounter Visit Diagnoses Diagnosis Pain- Primary Generalized pain documented in this encounter Care Teams Assistant Produce Manager Relationship Specialty Start Date End Date Ai Craig APRN-ASSISTANT SALES CENTER MANAGER [address] [place] [address] PCP - General Family Medicine 12/11/23 documented as of this encounter
--- OUTSIDE RECORDS SUMMARY | 2024-12-23 18:05 | XMS_ITS | Encounter Summary ---
Author Organization [facility] Address [id number] [address] [place] [address] Care Team Providers Care Hand Salter Name Role Phone Ai Craig INSTALLATION [facility] Primary Care Provider Encounter Details Date Type Department Care Team (Late st Contact Info) Description 12/11/2023 Office Visit [facility] [address] [place] [phone] Princess Orosco [facility] [address] [place], [place] [phone] Social History Tobacco Use Types Packs/Day Years Used Date Smoking Tobacco: Former Cigarettes Smokeless Tobacco: Current Chew Alcohol Use Standard Drinks/Week Comments Yes 0 (1 standard drink = 0.6 oz pur e alcohol) rarely C Utilities Answer Date Recorded In the past 12 months has [employer], gas, oil, or water [employer] threatened to shut off services in your home? No 11/03/2023 AUDIT-C Answer Date Recorded Q1: How often do you have a drink containing alcohol? Never 11/03/2023 Q2: How many drinks containi ng alcohol do you have on a typical day when you are drinking? Patient does not drink Q3: How often do you have si x or more drinks on one occasion? Never 11/03/2023 PHQ-2 Answer Date Recorded Total Score 4 11/03/2023 PRAPARE - Transportation Answer Date Re corded In the past 12 months, has l ack of transportation kept you from medical appointments or from getting medications? No 06/0 12/2023 In the past 12 months, has l ack of transportation kept you from meetings, work, or from getting things needed for daily living? No 11/03/2023 Housing Instability Answer Date Recorde d Are you worried or concerned that in the next two months you may not have stable housing that you own, rent or stay in as a part of a household? No 11/03/2023 Childcare Answer Date Recorded Childcare Unknown 11/04/2018 Employment Answer Date Recorded Employment Unknown 11/04/2018 Hunger Screening Answer Date Recorded Within the past 12 months we worried whether our food would run out before we got money to buy more. Never True 12/11/2023 Within the past 12 months th e food we bought just didn't last and we didn't have money to get more. Never True 12/11/2023 Sex and Gender Information Value Date Recorded Sex Assigned at Not on file Legal Sex Male 12:08 PM EDT Gender Identity Not on file Sexual Orientation Not on file documented as of this encounter Plan of Treatment Not on file documented as of this encounter Goals Goal Patient Goal Type Associated Problems Recent Progress Patient-Stated? Author Home General Yes Maria E Kelley, RN Note: Evaluation of progress towards goal: Current discharge plan is home with self care and support of significant other. - Maria E Kelley RN 11/05/23 11:49 AM documented as of this encounter Visit Diagnoses Not on filedocumented in this encounter Additional Health Concerns Assessment Noted Time PHQ-9 Depression Total Score: 4 11/03/19 24 5:04 PM EDT documented as of this encounter Care Teams Hand Salter Relationship Specialty Start Date End Date Ai Craig APRN-INDUSTRIAL RELATIONS DIRECTOR [address] [place] [address] PCP - General Family Medicine 12/11/23 documented as of this encounter
--- OUTSIDE RECORDS SUMMARY | 2024-12-23 18:05 | XMS_ITS | Clinical Summary ---
Author Organization [facility] Address [address] [place] [address] Care Team Providers Care Acupressurist Name Role Phone TiffanyirineoCarmenTrinidad Fidel BLOCK BREAKER OPERATOR Unavailable Allergies No known active allergies Medications levETIRAcetam (KEPPRA) 250 mg tablet Take 250 mg by mouth. 08/31/2023 Active lansoprazole (PREVACID) 30 mg capsule Take 30 mg by mouth once daily. 07/19/2023 Active valsartan (DIOVAN) 160 mg tablet Take 160 mg by mouth. 10/04/[address] (PROTONIX) 20 mg tablet Take 20 mg by mouth. 02/04/2023 Active apixaban (ELIQUIS) 5 mg tab(s) 5 mg. 11/06/2023 Active empagliflozin (JARDIANCE) 10 mg tablet Take 10 mg by mouth daily with breakfast. Active gabapentin (NEURONTIN) 600 mg tablet Take 1 tablet by mouth two times a day for 90 days. 60 tablet 2 04/10/2024 Active insulin glargine (LANTUS SOLOSTAR U-100 INSULIN) 100 unit/mL (3 mL) Inject 25 Units subcutaneou sly. 07/02/2024 Active enoxaparin (LOVENOX) 120 mg/0.8 mL injection Inject 110 mg subcutaneou sly. 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 09/26/2023 Pneumonia 09/26/2023 Rectal bleed 09/26/2023 Type 2 diabetes mellitus with obesity 09/26/2023 Benign paroxysmal positional vertigo of left ear 07/05/2023 Chronic right shoulder pain 07/04/2023 Deep venous thrombosis of peroneal vein 07/04/19 History of total right knee replacement 07/04/19 Hyperlipidemia 07/04/2023 Insomnia 07/04/2023 Pain in left knee 07/04/2023 Pneumonia due to SARS-associated coronavirus 11/2023 Seizure 07/04/2023 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 Type 2 diabetes mellitus with hyperglycemia 11/2023 Shoulder joint pain 07/04/2023 Diabetes 06/05/2023 Essential hypertension 06/05/2023 Lumbosacral spondylosis without myelopathy 06/05 Encounters Date Type Department Care Team Description 12/23/2024 2:30 PM EDT OT/PT/Speech Visit [facility] Physical Therapy [address] [place], [place] [id number] Zay Carlson, PT, DPT Lumbar radiculitis (Primary Dx) 12/18/2024 Get Medical Advice [facility] [address] [place] [address] Ray Randolph, PT Physical therapy 12/11/2024 3:15 PM EDT OT/PT/Speech Visit [facility] Physical Therapy [address] [place] [address] Ray Randolph, PT Lumbar radiculitis (Primary Dx) 12/11/2024 Travel 12/02/2024 Plan of Care Documentation [facility] Physical Therapy [address] [place] [address] [place] [address] 12/01/2024 1:45 PM EDT OT/PT/Speech Visit [facility] Physical Therapy [address] [place] [address] Ray Randolph PT Lumbar radiculitis 12/01/2024 Travel 11/24/2024 Get Medical Advice Pain Management [address] [place] [address] Mp Julien MD Physical therapy 11/11/2024 Telephone Pain Management [address] [place] [address] Florence Rivers APRN.BLOCK BREAKER OPERATOR Orders; Nurse Triage Call 11/11/2024 Patient Msg Pain Management [address] [place] [address] Florence Rivers APRN.BLOCK BREAKER OPERATOR 11/06/2024 8:45 AM EDT Office Visit Pain Management [address] [place] [address] Florence Rivers APRN.BLOCK BREAKER OPERATOR Annular tear of lumbar disc (Primary Dx); Lumbar radiculitis; Radiculopathy of lumbar region 10/27/2024 Patient Msg Pain Management [address] [place] [address] Provider, [facility] Follow up survey 10/23/2024 10:55 AM EDT - 10/23/2024 11:17 AM EDT Surgery Pain Management [address] [place] [address] Mp Julien MD INJECTION(S) ANESTHETIC AGENT AND STEROID TRANSFORAMINAL EPIDURAL LUMBAR W/IMAGE GUIDANCE FLUORO OR CT 10/23/2024 9:59 AM EDT - 10/23/2024 11:58 AM EDT Hospital Encounter Pain Management [address] [place] [address] Mp Julien MD Lumbar radiculitis [M54.16] Discharge Disposition: Home 10/23/2024 Travel 10/22/2024 Telephone Pain Management [address] [place] [address] Mp Julien MD Preparations For Procedures (Pre-Procedure Instructions and Arrival Time) 10/16/2024 Telephone Pain Management [address] [place] [address] Mp Julien MD 09/30/2024 1:15 PM EDT Office Visit Pain Management [address] [place] [address] Mp Julien MD Lumbar radiculitis (Primary Dx); Annular tear of lumbar disc 09/30/2024 Travel 09/25/2024 Travel from Last 3 Months Immunizations Immunization Administration Dates Next Due hepatitis B (HepB) vaccine, 3-dose series, age 0 yr - 19 yr (ENGERIX B-PEDS, RECOMBIVAX HB-PEDS) 08/07/2008,07/08/2008 Social History Tobacco Use Types Packs/Day Years [...] is lower risk 5 05/13/2024 Data from: https://www.neighborhoodatlas.medicine.[facility].edu/. Last address used for calculation [address] 05/13/2024 Sex and Gender Information Value Date Recorded Sex Assigned at Not on file Legal Sex Male 9:03 AM EST Gender Identity Not on file Sexual Orientation Not on file Last Filed Vital Signs Vital Sign Reading Time Taken Comments Blood Pressure 161/106 12/23/2024 2:00 PM EDT initially 183/120, lowered with rest and deep breathing Pulse 64 12/23/2024 2:00 PM EDT Temperature 37 C (98.6 F) 11/06/2024 8:21 AM EDT Respiratory Rate 16 11/06/2024 8:21 AM EDT Oxygen Saturation 99% 11/06/2024 8:2 1 AM EDT Inhaled Oxygen Concentration - - Weight 108.9 kg (240 lb) 11/06/2024 8:2 1 AM EDT Height 190.5 cm (6' 3 ) 11/06/2024 8:21 AM EDT Body Mass Index 30 11/06/2024 8:21 AM EDT Plan of Treatment Upcoming Encounters Date Type Department Care Team (Late st Contact Info) Description 12/25/2024 1:45 PM EDT OT/PT/Speech Visit [facility] Physical Therapy [phone] [place] [address] Ray Randolph, PT Low Back Pain 01/01/2025 1:45 PM EDT OT/PT/Speech Visit [facility] Physical Therapy [address] [place] [address] Ray Randolph, PT Low Back Pain Health Maintenance Due Date Last Done Comments Diabetic Foot Exam 1978 Dilated Retinal Exam 1978 Urine Albumin:Creatinine Ratio 1978 Annual PCP Team Chronic Dise ase Visit 1986 Anxiety Screening 1986 Depression Screening 1986 HIV Screening 1986 Hepatitis C Screening 1986 LDL Cholesterol 1986 Hepatitis B Vaccine (1 of 3 - 19+ 3-dose series) 12/06/1987 08/07/2008, 07/08/2008 Pneumococcal Vaccine: 50+ (1 of 2 - PCV) 12/06/1987 CT Colonography 2013 Cologuard (FIT-DNA) 2013 Colonoscopy 2013 Colorectal Cancer Screening 2013 Fecal Occult Blood 2013 Prostate Cancer Screening Discussion 2013 Sigmoidoscopy 2013 Shingrix Vaccine (1 of 2) 2018 HbA1C 09/24/2024 06/27/2024, 05/28, 06/10/2024, Additional history exists Influenza Vaccine (#1) 2025 DTaP,Tdap,Td Vaccine (2 - Td or Tdap) 08/29/2027 08/28/2017 Procedures Procedure Name Priority Date/Time Associated Diagnosis Comments GLUCOSE, BLOOD (POC) Routine 10/23/2024 11:48 AM EDT NJX AA&/STRD TFRML EPI LUMBAR/SACRAL 1 LEVEL 10/23/2024 11:21 AM EDT Lumbar radiculitis GLUCOSE, BLOOD (POC) Routine 10/23/2024 10:43 AM EDT HEMOGLOBIN A1C Routine 02/29/2024 1:49 PM EDT Elevated random blood glucose level from Last 3 Months or Most Recently Relevant to Health Maintenance Results * (ABNORMAL) GLUCOSE, BLOOD (POC) (10/23/2024 11:48 AM EDT) Only the most recent of2 resultswithin the time period is included. Pathologist [facility] Glucose, Point of Care 227(A) 74 - 99 mg/dL [facility] Comment: Location:[facility], [address] [place] [address], [facility] The Accu-Chek Inform II glucose meter has not been approved for testing on patients receiving intensive medical intervention or therapy and results from this point of care glucose test should not be used for patient management decisions in these cases. Inaccurate results may also occur from other interfering factors, such as N-acetylcysteine (blood concentrations of greater than 5mg/dL), galactose, extremes of hematocrit (<10 or >65), or high doses of ascorbic acid (vitamin C) greater than 3mg/dL. Consider alternate testing mechanisms (e.g. core lab, blood gas instrument) in the above situations. 10/23/2024 11:4 8 AM EDT us Mp Julien MD POC TESTING Final Result [facility] POINT OF CARE [address] * (ABNORMAL) HEMOGLOBIN A1C (02/29/2024 1:49 PM EDT) [facility] Hemoglobin A1C 9.2(H) 4.3 - 5.6 % 02/29/2024 7:11 PM EDT [facility] Comment:[place] Diabetes As sociation guidelines indicate that patients with HgbA1c in the range 5.7-6.4% are at increased risk for development of diabetes, and intervention by lifestyle modification may be beneficial. HgbA1c greater or equal to 6.5% is considered diagnostic of diabetes. Estimated Average Glucose 217 mg/dL 02/29/2024 7:11 PM EDT [facility] Comment:eAG: (Estimated aver age glucose) is a calculated value from HgbA1c and is denial management representative of the average blood glucose level in the last 2-3 month period. Blood BLOOD SPECIMEN / Unknown Venipuncture / Unknown 02/29/2024 1:49 PM EDT 02/29/2024 1:49 PM EDT us Samuel Olivo PA-C LABORATORY Final Resul t [facility] [address] [facility] [address] [place] [address], [place] from Last 3 Months or Most Recently Relevant to Health Maintenance Insurance [employer] Care Teams Acupressurist Relationship Specialty Start Date End Date Trinidad Gomes, BLOCK BREAKER OPERATOR [facility] [address]LE[address] GARCIA [address] [place] [address] Referring Family Medicine 09/17/23
--- OUTSIDE RECORDS SUMMARY | 2024-12-23 18:05 | XMS_ITS | Encounter Summary ---
Author Organization [facility] Address [address] [place] [address] Care Team Providers Care Gas Line Installer Supervisor Name Role Phone Trinidad Gomes TOP ICER Unavailable Source Comments In the event this information is protected by the Federal Confidentiality of Alcohol and Drug AbusePatient Records regulations: The Federal rules restrict any use of the information to criminally investigate or prosecute any alcohol or drug abuse patient.[facility] Encounter Details Date Type Department Care Team (Late st Contact Info) Description 11/11/2024 Patient Msg Pain Management [address] [place] [phone] Florence Rivers APRN.TOP ICER [address] [place], [place] [phone] Social History Tobacco Use Types Packs/Day Years [...] is lower risk 5 05/13/2024 Data from: https://www.neighborhoodatlas.medicine.[facility]/. Last address used for calculation [address] [...] Description 12/25/2024 1:45 PM EDT OT/PT/Speech Visit [facility] Physical Therapy [address] [place] [address] Ray Randolph PT Low Back Pain 01/01/2025 1:45 PM EDT OT/PT/Speech Visit [facility] Physical Therapy [address] [place] [address] Ray Randolph, PT Low Back Pain documented as of this encounter Visit Diagnoses Not on filedocumented in this encounter Care Teams Gas Line Installer Supervisor Relationship Specialty Start Date End Date Trinidad Gomes, TOP ICER [facility] [address] [place] [address] Referring Family Medicine 09/17/23 documented as of this encounter
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
--- OUTSIDE RECORDS SUMMARY | 2024-12-23 18:05 | XMS_ITS | Encounter Summary ---
Author Organization [facility] Address [address] [place] [address] Care Team Providers Care Auto Damage Insurance Appraiser Name Role Phone Trinidad Gomes PHARMACOVIGILANCE SAFETY EXPERT Unavailable Source Comments In the event this information is protected by the Federal Confidentiality of Alcohol and Drug AbusePatient Records regulations: The Federal rules restrict any use of the information to criminally investigate or prosecute any alcohol or drug abuse patient.[facility] Encounter Details Date Type Department Care Team (Late st Contact Info) Description 10/27/2024 Patient Msg Pain Management [address] [place] [phone] Provider, [facility] Follow up survey Social History Tobacco Use Types Packs/Day Years [...] is lower risk 5 05/13/2024 Data from: https://www.neighborhoodatlas.medicine.[facility].edu/. Last address used for calculation [address] 05/13/2024 Sex and Gender Information Value Date Recorded Sex Assigned at Not on file Legal Sex Male 9:03 AM EST Gender Identity Not on file Sexual Orientation Not on file documented as of this encounter Plan of Treatment Upcoming Encounters Date Type Department Care Team (Late st Contact Info) Description 12/25/2024 1:45 PM EDT OT/PT/Speech Visit [facility] Physical Therapy [id number] [place] [address] Ray Randolph PT Low Back Pain 01/01/2025 1:45 PM EDT OT/PT/Speech Visit [facility] Physical Therapy [address] [place] [address] Ray Randolph PT Low Back Pain documented as of this encounter Visit Diagnoses Not on filedocumented in this encounter Care Teams Auto Damage Insurance Appraiser Relationship Specialty Start Date End Date Trinidad Gomes, PHARMACOVIGILANCE SAFETY EXPERT [address] [facility] [address] [place] [address] Referring Family Medicine 09/17/23 documented as of this encounter
--- OUTSIDE RECORDS SUMMARY | 2024-12-23 18:05 | XMS_ITS | Patient Health Record ---
Author Organization ipsy [facility] es Address [address] [facility] [place] [address] Care Team Providers Care Floor Manager Name Role Phone Foreign Angel Primary Care Provider [phone] Ai Vo Unavailable [phone] Angie Morris Unavailable [phone] Allergies No Known Allergies Results Component Value Reference Range Notes Hemoglobin A1c Reviewed date:12/01/2024 09:22:26 AM Interpretation:10.0 Performing Lab: Notes/Report: 10.0 Hemoglobin A1c 10.0 5 - 7.9 % Hemoglobin A1c Reviewed date:08/01/2024 11:53:52 AM Interpretation:10.4 Performing Lab: Notes/Report: 10.4 Hemoglobin A1c 10.4 5 - 7.9 % Reason For Referral No Information Medications Medication SIG (Take, Route, Frequency, Duration) Notes Start Date End Date Status Januvia 100 MG 1 tablet Orally Once a day; Duration: 90 days 08/01/2024 Active Magnesium Not-Taking amLODIPine Besylate 10 MG 1 tablet Orally Once a day Not-Taking Eliquis DVT/PE Starter Pack 5 MG as directed Orally *Vascular Not-Takin g Lansoprazole 30 MG 1 capsule before a meal Orally Once a day; Duration: 30 days 07/19/2023 Active Cyclobenzaprine HCl 5 MG 1 tablet at bedtime as needed Orally Once a day; Duration: 30 days 01/30/2025 Active Ibuprofen 800 MG take 1 tablet by mouth three times a day with food or milk if needed; Duration: 30 days Active Keppra 500 MG 1 tablet Orally daily *Neurology Not-Taking Propranolol HCl 20 MG 1 tablet Orally Twice a day; Duration: 30 days 10/01/2024 Active Potassimin Not-Takin g Admelog 100 UNIT/ML as directed Injection Sliding Scale Not-Taking Albuterol Sulfate HFA 108 (90 Base) MCG/ACT 1 puff as needed Inhalation every 4 hrs; Duration: 30 days 10/01/2024 Active Valsartan-hydroCHLOROt hiazide 320-25 MG 1 tablet Orally Once a day; Duration: 90 days Active Blood Glucose Test - as directed In Vitro three times a day; Duration: 100 days 08/01/2024 Active Lantus SoloStar 100 UNIT/ML inject 50 units Subcutaneous once a day; Duration: 90 days 08/06/2024 Active Social History Tobacco Use: Social History Observation Description Date Details (start date - stop date) Unknown Sex Assigned At : Social History Observation Description Sex Assigned At Male Tobacco Screen: Question Answer Notes Are you a: Uses tobacco in other forms Sexual Hx: Question Answer Notes Had sex in the last 12 months (vaginal, oral, or anal)? Yes with Women only Have you ever had an STD? No Alcohol Screening: Question Answer Notes Did you have a drink contain ing alcohol in the past year? Yes How often did you have a dri nk containing alcohol in the past year? Monthly or less (1 point) How many drinks did you have on a typical day when you were drinking in the past year? 1 or 2 (0 points) How often did you have six o r more drinks on one occasion in the past year? Less than monthly (1 point) Points 2 Interpretation Negative PRAPARE Question Answer Notes Date Completed/Updated: 02/08/2023 What is your current housing situation? I have h ousing Are you worried about losing your housing? No What is the highest level of school that you have finished? 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 Check all that apply I do not have problems meeting my needs Has lack of transportation k ept you from medical appointments, meetings, work or from getting things needed for daily living? No How often do you see or talk to people that you care about and feel close to? (For example: talking to friends on the phone, visiting friends or family, going to advent or club meetings) 1 or 2 times a week How stressed are you? Stress is when someone feels tense, nervous, anxious, or cant sleep at night because their mind is troubled Somewhat In the past year have you sp ent more than 2 nights in a row in a long-term, long-term, mcc center, or juvenile correctional facility? No Are you a refugee? No What country are you from? [place] Do you feel physically and e motionally safe where you currently live? Yes In the past year, have you b een afraid of your partner or ex-partner? No PRAPARE Score: 4 AUDIT-C (Standard) Question Answer Notes Did you have a drink contain ing alcohol in the past year? Yes How often did you have six o r more drinks on one occasion in the past year? Never (0 point) How many drinks did you have on a typical day when you were drinking in the past year? 1 or 2 drinks (0 point) How often did you have a dri nk containing alcohol in the past year? 2 to 4 times a month (2 points) Points 2 Interpretation Negative Tobacco Control (Standard) Question Answer Notes Tobacco use: Uses tobacco in other forms Additional Findings: Tobacco user Chews tobacco Problems Problem Type SNOMED Code ICD Code Onset Dates Problem Status W/U Status Risk Notes Problem Tobacco user (293984811) Nicotine dependence, unspecified, uncomplicated (F17.200) Active confirmed Problem Essential tremor (259740465) Essential tremor (G25.0) Active confirmed Problem Insomnia (401735633) Other insomnia (G47.09) Active confirmed Problem Hyperlipidemia (71408331) Hyperlipidemia (E78.5) Active confirmed Problem Hypertension (27509755) HTN (hypertension) (I10) Active confirmed Problem Seizure (67544023) Seizure (R56.9) Active confi rmed Problem Pain of left knee joint (finding) (704321102162436) Pain in left knee (M25.562) Active confirmed Problem Diabetes mellitus type 2 (90754623) Diabetes mellitus type 2, uncontrolled (E11.65) Active confirmed Problem Chronic pain (07181402) Other chronic pain (G89.29) Active confirmed Problem Primary hypertension (30239657) Primary hypertension (I10) Active confirmed Problem Gastroesophageal reflux disease without esophagitis (487426308) Gastroesophageal reflux disease without esophagitis (K21.9) Active confirmed Problem Shoulder joint pain (665910218) Acute pain of right shoulder (M25.511) Active confirmed Problem Chest wall pain (636267299) Chest wall pain (R07.89) Active confirmed Problem 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) Acute costochondritis (M94.0) Active confirmed Problem Sciatica (30509151) Lumbago of l umbar region with sciatica (M54.40) Active confirmed Problem Deep venous thrombosis of peroneal vein (600852993) Acute deep vein thrombosis (DVT) of other specified vein of right lower extremity (I82.491) Active confirmed Vital Signs Heart Rate 71 /min 12/01/2024 Temperature 98.1 degrees Fahrenheit 10/01/2024 Respiratory Rate 167/108 /min 12/01/2024 Oximetry 96 % 12/01/2024 Blood pressure diastolic 107 mm Hg 12/01/2024 Height 73 in 12/01/2024 Blood pressure systolic 164 mm Hg 12/01/2024 Weight 250.4 lbs 12/01/2024 BMI 33.03 kg/m2 12/01/2024 Encounters Encounter Location Date Provider Diagnosis [facility] [address] [place] [address] 12/24/2023 [facility] [address] [place] [address] 12/26/2023 [place] [address] [place] [address] 12/31/2023 [facility] [address] [place] [address] 01/07/2024 [place] [address] [place] [address] 06/03/2024 Ai Vo Diabetes mellitus ty pe 2, uncontrolled E11.65 [place] [address] [place] [address] 08/01/2024 Angel Carrasquillo Diabetes mellitus ty pe 2, uncontrolled E11.65 [address] [place] [address] 10/14/2024 Angel Carrasquillo [facility] [address] [place] [address] 11/10/2024 Angel Carrasquillo Diabetes mellitus ty pe 2, uncontrolled E11.65 [facility] [address] [place] [address] 12/02/2024 Angel Carrasquillo Diabetes mellitus ty pe 2, uncontrolled E11.65 [place] [address] [place] [address] 12/02/2024 Angel Carrasquillo Diabetes mellitus ty pe 2, uncontrolled E11.65 [place] [place] [address] 01/02/2024 Ai Vo Acute pain of right shoulder M25.511 and HTN (hypertension) I10 [facility] [address] [place] [address] 08/01/2024 Angel Carrasquillo Diabetes mellitus ty pe 2, uncontrolled E11.65 ; HTN (hypertension) I10 and Candidal balanitis B37.42 [facility] [address] [place] [address] 10/01/2024 Angel Carrasquillo Diabetes mellitus ty pe 2, uncontrolled E11.65 ; Bronchitis J40 ; Essential tremor G25.0 ; Other chronic pain G89.29 and Low back pain, unspecified M54.50 [facility] [address] [place] [address] 12/01/2024 Angie Morris Diabetes mellitus ty pe 2, uncontrolled E11.65 ; Essential tremor G25.0 ; Lumbago of lumbar region with sciatica M54.40 and HTN (hypertension) I10 [facility] [address] [place] [address] 12/25/2023 Ai mahsazzMurrlee Nicotine dependence, unspecified, uncomplicated F17.200 and Pain, joint, shoulder, right M25.511 Assessments Encounter Date Diagnosis (ICD Code) Assessment Notes Treatment Notes Treatment Clinical Notes Section Notes 01/02/2024 Acute pain of right shoulder (ICD-10 - M25.511) Encouraged patient to follow up with ortho for pain and shoulder treatment. Patient verbalized understanding, will contact their office. 06/03/2024 Diabetes mellitus type 2, uncontrolled (ICD-10 - E11.65) 12/25/2023 Nicotine dependence, unspecified, uncomplicated (ICD-10 - F17.200) Quitting Tobacco: Care Instructions material was published 12/25/2023 Pain, joint, shoulder, right (ICD-10 - M25.511) Reviewed MRI from 09/2023, patient does have extensive damage to right shoulder, evidence of rotator cuff tear, cysts, and adhesive capsulitis. Pt has upcoming appt with ortho on , he is also scheduled to start PT next week. Encouraged patient to keep these appointments. Patient verbalized understanding. 01/02/2024 HTN (hypertension) (ICD-10 - I10) BP is above goal of >140/90. Encouraged to monitor BP at home, keep a log, if >180/90 RTO, if >200/100 with CLEMENTS, visual changes, NV, chest pain or pressure go to the ER. Encouraged moderate exercise and a low salt diet. Discussed if BP continued to be elevated we will consider medication management. Patient verbalized understanding. 08/01/2024 HTN (hypertension) (ICD-10 - I10) 08/01/2024 Diabetes mellitus type 2, uncontrolled (ICD-10 - E11.65) Patient off Jardiance over interval recently and inconsistently taking insulin. We did discuss consistency with insulin administration. Will also start Januvia in place of Jardiance is likely causing him to have some candidal balanitis. Med sent for same to pharmacy today. Will continue with other medications as is. 08/01/2024 Diabetes mellitus type 2, uncontrolled (ICD-10 - E11.65) 10/01/2024 Bronchitis (ICD-10 - J40) Patient with acute bronchitis. We did discuss supportive care. No need for antibiotics at this time. Signs symptoms to return to clinic or go to nearest ER were discussed. 10/01/2024 Diabetes mellitus type 2, uncontrolled (ICD-10 - E11.65) Patient without low blood sugars and has had issue with itching resolved with changing timing of his insulin administration. Will continue current treatment plan. 11/10/2024 Diabetes mellitus type 2, uncontrolled (ICD-10 - E11.65) 12/01/2024 Essential tremor (ICD-10 - G25.0) Patient needs refill on medication. 12/01/2024 Diabetes mellitus type 2, uncontrolled (ICD-10 - E11.65) A1c today is 10.0% which is a slight improvement from 10.4% earlier in the year. He reports medication compliance and no symptomatic hypoglycemic events. 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 Patient declines starting metformin due to personal experience with friends on the medication. However, patient is agreeable to increase in basal insulin from 30 units to 50 units daily and to check his sugars more frequently. Last microalbumin/creat inine ratio was 6.0 in 03/18. Serum creatinine within normal limits in 11/18. Patient is on an ARB, but he is not on a statin. 12/02/2024 Diabetes mellitus type 2, uncontrolled (ICD-10 - E11.65) 12/02/2024 Diabetes mellitus type 2, uncontrolled (ICD-10 - E11.65) 12/01/2024 Lumbago of lumbar region with sciatica (ICD-10 - M54.40) Patient is in some noticeable pain today. He has an appointment with his pain management doctor later this afternoon. Will refill muscle relaxer. 10/01/2024 Essential tremor (ICD-10 - G25.0) Patient with likely essential tremor. We did discuss starting propranolol. Discussed referral to neuro in the future if ineffective 08/01/2024 Candidal balanitis (ICD-10 - B37.42) 10/01/2024 Other chronic pain (ICD-10 - G89.29) 12/01/2024 HTN (hypertension) (ICD-10 - I10) Patient's blood pressure not at goal in office today. However, he is in noticeable pain. He reports good medication compliance. He denies any headaches, chest pain, shortness of breath, blurry vision, abdominal pain, nausea/vomiting. Will not make any medication adjustments today. 10/01/2024 Low back pain, unspecified (ICD-10 - M54.50) 12/25/2023 Other Body Mass Index : Care Instructions material was published Plan Of Treatment Next Appt Details Provider Name:Angel lloyd, 02/04/2025 10:00:00 AM, [address] [place], [address], Insurance Providers Payer Name Payer Address Payer Phone Subscriber Number Group Number Insured Name Patient Relationship to Insured Coverage Start Date Coverage End Date [employer] [place] Medicaid [address] [address] [place] [id number] JESUS MANUELTEA Self - patient is the insured 4 4 [place] [place] Medicaid [address] [address] [place] [address] [id number] JESUS MANUELTEA Self - patient is the insured 4 [employer] [facility] [address] [place] [address] [id number] JESUS MANUELTEA Self - patient is the insured 4 4 [employer] [facility] [address] [place] [address] [id number] JESUS MANUELTEA Self - patient is the insured 4 [id number] after [facility]-termed [address] [place] [address] [id number] JESUS MANUELTEA Self - patient is the insured 2 3 [facility] [address] [place] [address] [id number] TEA KEN Self - patient is the insured 2 3 [employer] [place] Medicaid [address] [place] [address] [id number] TEA KEN Self - patient is the insured 2 3 ap [facility] [address] [place] [address] [id number] JESUS MANUELTEA Self - patient is the insured 2 3 MEDICA[place] [address] [place] [address] [id number] JESUS MANUELTEA Self - patient is the insured 4 Medications Administered Medication Instructions Date of Administration Dosage Notes TORADOL 02/09/2020 2 mL TORADOL 10/27/2020 2 mL TORADOL 06/19/2022 2 mL TORADOL 07/06/2022 2 mL TORADOL 08/03/2022 2 mL TORADOL 09/04/2022 2 mL TORADOL 10/04/2022 2 mL TORADOL 01/01/2023 60 mg TORADOL 01/09/2023 60 mg TORADOL 01/19/2023 2 mL TORADOL 02/28/2023 60 mg TORADOL 03/14/2023 2 mg TORADOL 09/12/2023 60 mg Medical (General) History Medical History History ICD Code LEVEL 4 tendonitis of the right knee hypertension DVT type II diabetes insomnia seizures hyperlipidemia Surgical History Surgery Date(Month/Year) hand surgery 1993 right foot and ankle 2000 knee surgery knee surgery 05/22/14 cholecystectomy Hospitalization History Reason Date(Month/Year) Seizure/Blood Clot 10/2023 Seizures 04/18 GI Bleed DVT COVID-19/pneumonia 4 days in the hospital after knee surger y
--- OUTSIDE RECORDS SUMMARY | 2024-12-23 18:05 | XMS_ITS | Encounter Summary ---
Author Organization [facility] Address [address] [place] [address] Care Team Providers Care Renal Dietitian Name Role Phone Unallocated, Noms Provider Primary Care Provi jacki Encounter Details Date Type Department Care Team (Late st Contact Info) Description 12/23/2024 Clinisync Result Encounter [facility] External Department Unsolicited Margot Willis PA [address] [place] [address] [place] [address] Social History Tobacco Use Types Packs/Day Years [...] XR CHEST 2V 12/23/2024 5:58 PM EDT documented in this encounter Results * XR CHEST 2V (12/23/2024 5:58 PM EDT) Anatomical Region Laterality Modality Other 12/23/2024 5:58 PM EDT Narrative 12/23/2024 6:01 PM EDT The [address] [address] XRay Report Signed Patient: DELTA WEEMS MR#: [id number] : 1970 Acct:[id number] Age/Sex: 54 / M ADM Date: Loc: ER Attending Dr: Ordering Physician: Margot Willis Date of Service: 12/23/24 Procedure(s): XR chest 2V Accession Number(s): [id number] cc: Margot Willis [place] [address] Patient Name: DELTA WEEMS [facility]N: [facility]:[id number] date: 1970 Sex: M Assigned Patient Location: ER Current Patient Location: ER Accession/Order Number: [id number] Exam Date: 12/23/2024 17:58 Report Date: 12/23/2024 [...] Santos M.D. 12/23/2024 5:58 PM Dictation Location: [place] [address] Electronically authenticated by: [id number] Date: 12/23/2024 17:58 Dictated By: Evans Santos M.D. Signed By: 12/23/24 180 DD/ 1758 TD/TT: French Pastry Cook: Procedure Note Radiology, Radiologist, MD - 12/23/2024 [place] [address] XRay Report Signed Patient: DELTA WEEMS LMR#: [id number] : 1970Acct:[id number] Age/Sex: 54 / MADM Date: Loc: ER Attending Dr: Ordering Physician: Margot Willis Date of Service: 12/23/24 Procedure(s): XR chest 2V Accession Number(s): [id number] cc: Margot Willis [place] [address] Patient Name: DELTA WEEMS MRN: [id number] date: 1970 Sex: M Assigned Patient Location: ER Current Patient Location: ER Accession/Order Number: [id number] Exam Date: 12/23/2024 17:58 Report Date: 12/23/2024 [...] Santos M.D. 12/23/2024 5:58 PM Dictation Location: [place] [address] Electronically authenticated by: [id number] Y Date: 7:58 Dictated By: Evans Santos M.D. Signed By:12/23/24 1801 DD/ 1758 TD/TT: French Pastry Cook: us Margot [facility] Final Result documented in this encounter Visit Diagnoses Not on filedocumented in this encounter Care Teams Renal Dietitian Relationship Specialty Start Date End Date Unallocated, Noms Provider, [address] [place] [address] PCP - General Family Medicine 01/08/24 documented as of this encounter
--- OUTSIDE RECORDS SUMMARY | 2024-12-23 18:05 | XMS_ITS | Clinical Summary ---
Author Organization [facility] Address [id number] [address] [place] [address] Care Team Providers Care Digital Program Manager Name Role Phone Ai Craig FIRST COOK-LINING PRESSER Primary Care Provider Allergies No known active allergies Medications ibuprofen (MOTRIN) 800 mg tablet Take 1 tablet (800 mg total) by mouth 3 (three) times a day. 21 tablet 3 Active Additional Information Patient not taking.Reported on 01/29/2024 cyclobenzaprine (FLEXERIL) 5 mg tablet Take 1 tablet (5 mg total) by mouth daily as needed. Active glipiZIDE (GLUCOTROL) 10 mg tablet Take 1 tablet (10 mg total) by mouth in the morning and 1 tablet (10 mg total) in the evening. Take before meals. 3 Active pantoprazole (PROTONIX) 20 mg EC tablet Take 1 tablet (20 mg total) by mouth in the morning and 1 tablet (20 mg total) in the evening. Take before meals. Active acetaminophen-cod eine (TYLENOL #3) 300-30 mg per tablet Take 1 tablet by mouth every 6 (six) hours as needed. 4 Active valsartan (DIOVAN) 160 mg tablet Take 1 tablet (160 mg total) by mouth in the morning. Active apixaban (ELIQUIS) 5 mg tablet Take 1 tablet (5 mg total) by mouth in the morning and 1 tablet (5 mg total) before bedtime. 4 Active levETIRAcetam 1,000 mg tablet extended release 24 hr Take 1,000 mg by mouth in the morning. 4 Active JARDIANCE 10 mg tablet tablet Take 1 tablet (10 mg total) by mouth in the morning. 4 Active gabapentin (NEURONTIN) 300 mg capsuleIndication s:Cervical radiculopathy Take 1 capsule (300 mg total) by mouth See Admin Instructions. Take 1 tablet by mouth at bedtime for 3 nights, then take 1 tablet by mouth twice daily for 3 days, then take 1 tablet by mouth three times daily thereafter 81 capsule 4 Active Active Problems Problem Noted Date Diagnosed Date History of embolectomy 11/04/2023 Unresponsive episode 11/03/2023 Acute pulmonary embolism without acute cor pulmo nale 11/02/2023 Acute deep vein thrombosis (DVT) of lower extrem ity 09/26/2023 Esophageal ulcer with bleeding 09/26/2023 Deep venous thrombosis of peroneal vein 07/04/19 24 Seizure 07/04/2023 Type 2 diabetes mellitus with hyperglycemia 11/2023 Diabetes 06/05/2023 Essential hypertension 06/05/2023 Lumbosacral spondylosis without myelopathy 06/05 Social History Tobacco Use Types Packs/Day Years Used Date Smoking Tobacco: Former Cigarettes Smokeless Tobacco: Current Chew Tobacco Cessation:Ready to Q uit: Not Asked; Counseling Given: Not Answered Alcohol Use Standard Drinks/Week Comments Yes 0 (1 standard drink = 0.6 oz pur e alcohol) rarely Ceros Answer Date Recorded In the past 12 months has e [employer]al [employer], gas, oil, or water [employer] threatened to shut off services in your [...] medical appointments or from getting medications? No 12/2023 In the past 12 months, has [...] got money to buy more. Never True 01/29/2024 Within the past 12 months th e food we bought just didn't last and we didn't have money to get more. Never True 01/29/2024 Sex and Gender Information Value Date Recorded Sex Assigned at Not on file Legal Sex Male 12:08 PM EDT Gender Identity Not on file Sexual Orientation Not on file Last Filed Vital Signs Vital Sign Reading Time Taken Comments Blood Pressure 186/116 01/29/2024 10:19 AM EDT Pulse 88 01/29/2024 10:19 AM EDT Temperature 36.4 C (97.5 F) 11/05/2023 12:20 PM EDT Respiratory Rate 20 01/29/2024 10:1 9 AM EDT Oxygen Saturation 99% 12/11/2023 2:02 PM EDT Inhaled Oxygen Concentration - - Weight 120.2 kg (264 lb 15.9 oz) 11/04/2023 4:45 AM EDT Height 188 cm (6' 2 ) 11/03/2023 9:21 PM EDT Body Mass Index 34.02 11/03/2023 9:21 PM EDT Plan of Treatment Health Maintenance Due Date Last Done Comments Diabetic Ophthalmology Exam 1970 Tobacco Counseling 1970 Diabetic Foot Exam 1986 Zoster (Shingles) Vaccine (1 of 2) 2018 Depression Screening 11/02/2024 11/03/2023 Adult BMI Screening 11/03/2024 11/04/2023 Influenza Vaccine 01/26/2025 Tobacco Screening 01/28/2025 01/29/2024 DTaP,Tdap and Td Vaccines (2 - Td or Tdap) 08/29/2027 08/28/2017 Goals Goal Patient Goal Type Associated Problems Recent Progress Patient-Stated? Author Home General Yes Maria E Kelley RN Note: Evaluation of progress towards goal: Current discharge plan is home with self care and support of significant other. - Maria E Kelley RN 11/05/23 11:49 AM Medical Devices Implanted Type Area Boarder Machine Device Identifier Shelf Expiration Date Model / Serial / Lot Right Knee And Ivc Filter Insurance H[employer]AN [employer] [facility] MEDICA[facility] Advance Directives * Full Code (Latest Code Status on File) Date Activated Date Inactivated Comments 11/04/2023 10:39 AM 11/05/2023 8:03 PM Care Teams Digital Program Manager Relationship Specialty Start Date End Date Ai Craig APRN-LINING PRESSER [address] [place] [id number] PCP - General Family Medicine 12/11/23
--- OUTSIDE RECORDS SUMMARY | 2024-12-23 18:06 | XMS_ITS | Encounter Summary ---
Author Organization [facility] Address [address] [place] [address] Care Team Providers Care Pelt Shearer Name Role Phone Trinidad Gomes OUTPATIENT SERVICES DIRECTOR Unavailable Source Comments In the event this information is protected by the Federal Confidentiality of Alcohol and Drug AbusePatient Records regulations: The Federal rules restrict any use of the information to criminally investigate or prosecute any alcohol or drug abuse patient.[facility] Encounter Details Date Type Department Care Team (Late st Contact Info) Description 04/14/2024 Patient Msg Pain Management [address] [place], [place] [id number] Provider, [facility] Follow up to procewdure Social History Tobacco Use Types Packs/Day Years [...] is lower risk 5 10/12/2023 Data from: https://www.neighborhoodatlas.medicine.[facility].ed u/. Last address used for calculation [address] 10/12/2023 Sex and Gender Information Value Date Recorded Sex Assigned at Not on file Legal Sex Male 9:03 AM EST Gender Identity Not on file Sexual Orientation Not on file documented as of this encounter Plan of Treatment Upcoming Encounters Date Type Department Care Team (Late st Contact Info) Description 12/25/2024 1:45 PM EDT OT/PT/Speech Visit [facility] Physical Therapy [id number] [place] [id number] Ray Randolph PT Low Back Pain 01/01/2025 1:45 PM EDT OT/PT/Speech Visit [facility] Physical Therapy [address] [place] [address] Ray Randolph PT Low Back Pain documented as of this encounter Visit Diagnoses Not on filedocumented in this encounter Care Teams Pelt Shearer Relationship Specialty Start Date End Date Trinidad Gomes, OUTPATIENT SERVICES DIRECTOR [address] [place] [address] Referring Family Medicine 09/17/23 documented as of this encounter
--- OUTSIDE RECORDS SUMMARY | 2024-12-23 18:06 | XMS_ITS | Encounter Summary ---
Author Organization [facility] Address [address] [place], [place] [id number] Care Team Providers Care Crusher Loader Equipment Operator Name Role Phone Trinidad Gomes BILINGUAL MEDICAL ASSISTANT Unavailable [phone] Source Comments In the event this information is protected by the Federal Confidentiality of Alcohol and Drug AbusePatient Records regulations: The Federal rules restrict any use of the information to criminally investigate or prosecute any alcohol or drug abuse patient.[facility] Encounter Details Date Type Department Care Team (Late st Contact Info) Description 04/10/2024 Telephone [facility] [address] [place] [address] Han Short MD [address] [place] [address] Social History Tobacco Use Types Packs/Day Years [...] is lower risk 5 10/12/2023 Data from: https://www.[facility] hospitalat[facility].ed u/. Last address used for calculation [address] 10/12/2023 Sex and Gender Information Value Date Recorded Sex Assigned at Not on file Legal Sex Male 9:03 AM EST Gender Identity Not on file Sexual Orientation Not on file documented as of this encounter Miscellaneous Notes * Telephone Encounter - Cynthia Mena - 04/10/2024 10:20 AM EST Patient is on his way got lost should be there in 10 min patient is at [address] [place] documented in this encounter Plan of Treatment Upcoming Encounters Date Type Department Care Team (Late st Contact Info) Description 12/25/2024 1:45 PM EDT OT/PT/Speech Visit [facility] Physical Therapy [address] [place], [place] [phone] Ray Randolph PT Low Back Pain 01/01/2025 1:45 PM EDT OT/PT/Speech Visit [facility] Physical Therapy [address] [place] [address] Ray Randolph PT Low Back Pain documented as of this encounter Visit Diagnoses Not on filedocumented in this encounter Care Teams Crusher Loader Equipment Operator Relationship Specialty Start Date End Date Trinidad Gomes CNP [address] [facility] [address] [place] [address] Referring Family Medicine 09/17/23 documented as of this encounter
--- OUTSIDE RECORDS SUMMARY | 2024-12-23 18:06 | XMS_ITS | Encounter Summary ---
Author Organization [facility] Address [address] [place] [address] Care Team Providers Care Manufacturing Cost Estimator Name Role Phone Trinidad Gomes UNDER CUTTING MACHINE OPERATOR Unavailable Source Comments In the event this information is protected by the Federal Confidentiality of Alcohol and Drug AbusePatient Records regulations: The Federal rules restrict any use of the information to criminally investigate or prosecute any alcohol or drug abuse patient.[facility] Encounter Details Date Type Department Care Team (Late st Contact Info) Description 08/06/2024 Patient Msg Pain Management [address] [place] [phone] Provider, Ccf post procedure questions Social History Tobacco Use Types Packs/Day Years [...] is lower risk 5 05/13/2024 Data from: https://www.neighborhoodatlas.medicine.[facility].edu/. Last address used for calculation [address] [facility] 05/13/2024 Sex and Gender Information Value Date Recorded Sex Assigned at Not on file Legal Sex Male 9:03 AM EST Gender Identity Not on file Sexual Orientation Not on file documented as of this encounter Plan of Treatment Upcoming Encounters Date Type Department Care Team (Late st Contact Info) Description 12/25/2024 1:45 PM EDT OT/PT/Speech Visit [facility] Physical Therapy [id number] [place] [address] Ray Randolph PT Low Back Pain 01/01/2025 1:45 PM EDT OT/PT/Speech Visit [facility] Physical Therapy [address] [place] [address] Ray Randolph PT Low Back Pain documented as of this encounter Visit Diagnoses Not on filedocumented in this encounter Care Teams Manufacturing Cost Estimator Relationship Specialty Start Date End Date Trinidad Gomes, UNDER CUTTING MACHINE OPERATOR [address] [facility] [address] [place] [address] Referring Family Medicine 09/17/23 documented as of this encounter
[2024-12-23 18:09] LABS: Partial Thromboplastin Time 28.2 sec (22.3-36.2)
--- NOTE | 2024-12-23 18:33 | CT_ITS ---
[address] [address] Patient Name: TEA KEN MRN: [id number] date: 1970 Sex: M Assigned Patient Location: ER Current Patient Location: [facility] Accession/Order Number: [id number] Exam Date: 12/23/2024 19:18 Report Date: 12/23/2024 19:25 At the request of: NAHEED WILLIS Procedure: CT angio chest CT ANGIOGRAM OF THE CHEST, PULMONARY EMBOLISM PROTOCOL: CLINICAL INFORMATION: Midsternal chest pain for 2 weeks, history of pulmonary embolism TECHNIQUE: Following intravenous injection of contrast CT scans of the chest were obtained using pulmonary embolism protocol. Coronal and sagittal reconstructed images, as well as volume rendered CT pulmonary angiographic images were also submitted.The CT exam was performed using one or more of the following dose reduction techniques: Automated exposure control, adjustment of the MA and/or Kv according to patient size, or use of the iterative reconstruction technique. FINDINGS: Pulmonary Vasculature: Contrast bolus is adequate for evaluation of pulmonary embolism. Pulmonary trunk appears nondilated. Bilateral pulmonary emboli involving distal main pulmonary arteries extending to both upper lobar branch is prominent right-sided. No saddle embolism. No heart strain. Mediastinum : Thoracic aorta is normal in caliber. Cardiomegaly. Coronary disease. No pericardial effusion. No lymphadenopathy. The esophagus is grossly unremarkable. Lungs: Hypoventilatory change. No focal consolidation, pneumothorax or pleural effusion. Upper abdomen: Low attenuation liver can be seen in location. Cholecystectomy. Soft tissue/bones: Soft tissues surrounding the chest wall demonstrate no acute findings. Osseous structures demonstrate degenerative change. CT/CT angio chest IMPRESSION: Bilateral pulmonary emboli extending to upper and lower lobar branches Critical findings were discussed with the ER physician at approximately 7:22 PM on 12/23/2024 Impression dictated by: Evans Santos M.D. 12/23/2024 7:25 PM Dictation Location: [place] [address] Electronically authenticated by: [id number] Y Date: 12/23/2024 19:25
[2024-12-23] MEDS: MORPHINE SULFATE 2 MG/ML SYRINGE IV ×2 (18:35→19:25)
[2024-12-23] MEDS: POTASSIUM CHLORIDE 10 MEQ ER TABLET 40 MEQ PO (18:35)
[2024-12-23] MEDS: 0.9 % SODIUM CHLORIDE 1,000 ML 1000 ML IV (18:36)
--- NOTE | 2024-12-23 19:09 | PC.NURSE ---
Second troponin drawn
--- NOTE | 2024-12-23 19:14 | PC.NURSE ---
Pt states that his mid-sternal CP is at a 6.5 and it radiates to the R arm. States the morphine took his pain from a 7 to a 6.5
== END 2024-12-23 20:25 | disposition home or self-care (01) ==
PROVIDERS: Physician Assistant; Emergency Provider Emergency Medicine; PCP Nurse Practitioner Family
DX: R07.89 Other chest pain (principal); I27.82 Chronic pulmonary embolism; I26.99 Other pulmonary embolism without acute cor pulmonale
CPT/HCPCS: 36415; 71046; 71275; 80053; 84484; 85025; 85610; 85730; 93005; 96374; 96376; 99285; J2270; Q9967